=== PATIENT | male | born 1970 | race Caucasian/White ===

== ENCOUNTER 2025-03-29 12:35 | Emergency (ER) | payer OTHER, SELFPAY ==
--- OUTSIDE RECORDS SUMMARY | 2025-01-06 04:00 | XMS_ITS ---
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 Name Role Phone ROXANA LANDIN Primary Care Provider Timoteo Matthew Unavailable [phone] REASON FOR VISIT RIGHT ANKLE INJURY FILMS AT [facility] Encounters Encounter Location Date Provider Diagnosis [facility] [address] [place] [address] 01/06/2025 Timoteo Zuniga Plan Of Treatment No Information Progress Notes * ILIR MONTILLAINDOB:1970 (54 yo M)Acc No.[id number]:01/06/2025 Patient: Sulaiman IVORY JANA Provider: Tyrese Zuniga MD :1970 A ge:54 Y S ex:Male Date:01/06/2025 Address:[address] [place], [place] [phone] Pcp:ROXANA LANDIN Subjective: * Chief Complaints: * 1 . RIGHT ANKLE INJURY FILMS AT [facility]. * Medical History: Objective: * Vitals: Assessment: Plan: * Treatment: Forms: * Images: * Electronic signature of Vikas Zuniga MD on 03/29/2025 at 12:48 PM EDT Sign off status: Pending * Provider: Tyrese Zuniga MD Date: 01/06/2025 Generated for Printi ng/Faxing/eTransmitting on: 0 03/29/2025 12:48 PM EDT
--- OUTSIDE RECORDS SUMMARY | 2025-03-28 14:15 | XMS_ITS | Encounter Summary ---
Author Organization [facility] Address [address] [place] [address] Phone Care Team Providers Care Rotor Plate Washer Name Role Phone Unavailable Primary Care Provider Unavailabl e Reason for Referral * Consultation (Routine) - Authorized Specialty Diagnoses / Procedures Referred By West colon Referred To Contact Primary Care Procedures Follow Up In Primary [place] [address] [place] [address] Phone: tel: fax: Referral ID Status Reason Start Date Expiration Date V isits Requested Visits Authorized [id number] Authorized 03/28/2025 03/28/2026 1 1 * Endoscopy (Routine) - Pending Review Specialty Diagnoses / Procedures Referred By West colon Referred To Contact Gastroenterology Diagnoses Iron deficiency anemia due to chronic blood loss Procedures Colonoscopy Screening; Average Risk Patient AL COLONOSCOPY FLX DX W/COLLJ SPEC WHEN PFRMD AL COLORECTAL CANCER SCREENING; COLONOSCOPY ON INDIVIDUAL NOT MEETING CRITERIA FOR HIGH RISK AL COLORECTAL CANCER SCREENING; COLONOSCOPY ON INDIVIDUAL AT HIGH RISK AL COLONOSCOPY W/BIOPSY SINGLE/MULTIPLE AL COLSC FLX W/RMVL OF TUMOR POLYP LESION SNARE TQ AL COLSC FLX W/REMOVAL LESION [place] [address] [place] [address] Phone: tel: fax: Referral ID Status Reason Start Date Expiration Date V isits Requested Visits Authorized [id number] Pending Review 03/28/2025 03/28/2026 1 1 * CV Imaging (Routine) - Pending Review Specialty Diagnoses / Procedures Referred By Contac t Referred To Contact Cardiology Diagnoses Dissecting aneurysm of thoracic aorta, Jona type B (Multi) Hypertension, unspecified type Procedures Echocardiogram Stress Test AL ECHO TTHRC R-T 2D W/WO M-MODE COM[place]TE REST&[place] [address] [address] [phone] Phone: tel: fax: Referral ID Status Reason Start Date Expiration Date Visits Requested Visits Authorized [id number] Pending Review Perform Procedure 03/28/2025 03/28/2026 1 1 Reason for Visit * Reason Comments Establish Care Medication refills a nd fatigue Encounter Details Date Type Department Care Team (Late st Contact Info) Description 03/28/2025 2:15 PM EDT Office Visit [facility] [address] [facility] [address] [place] [address] [place] [address] [address] [phone] Leg swelling (Primary Dx); Dissecting aneurysm of thoracic aorta, Johnston type B (Multi); Fatigue, unspecified type; Iron deficiency anemia due to chronic blood loss; Hypertension, unspecified type Social History Tobacco Use Types Packs/Day Years Used Date Smoking Tobacco: Former Cigarettes 1 35.4 S tarted: 1989 Smokeless Tobacco: Former Alcohol Use Standard Drinks/Week Comments Yes 1 (1 standard drink = 0.6 oz pur e alcohol) [facility] Utilities Answer Date Recorded In the past 12 months has [employer] gas, oil, or water company threatened to shut off services in your home? No 01/23/2025 Humiliation, Afraid, Rape, and Kick questionnair e Answer Date Recorded Within the last year, have y ou been afraid of your partner or ex-partner? No 01/23/2025 Within the last year, have y ou been humiliated or emotionally abused in other ways by your partner or ex-partner? No Within the last year, have y ou been kicked, hit, slapped, or otherwise physically hurt by your partner or ex-partner? No 01/23/2025 Within the last year, have y ou been raped or forced to have any kind of sexual activity by your partner or ex-partner? No 01/23/2025 AUDIT-C Answer Date Recorded Q1: How often do you have a drink containing alcohol? 4 or more times a week 01/23/2025 Q2: How many drinks containi ng alcohol do you have on a typical day when you are drinking? 3 or 4 Q3: How often do you have si x or more drinks on one occasion? Never 01/23/2025 Overall Financial Resource Strain (CARDIA) Answe r Date Recorded How hard is it for you to pa y for the very basics like food, housing, medical care, and heating? Not very hard 01/23/2025 PHQ-2 Answer Date Recorded Patient Health Questionnaire-2 Score 0 03/28/2025 Hunger Vital Sign Answer Date Recorded Within the past 12 months, y ou worried that your food would run out before you got the money to buy more. Never true 01/24/20 25 Within the past 12 months, t he food you bought just didn't last and you didn't have money to get more. Never true 01/23/2025 PRAPARE - Transportation Answer Date Re corded In the past 12 months, has l ack of transportation kept you from medical appointments or from getting medications? No 04/2025 In the past 12 months, has l ack of transportation kept you from meetings, work, or from getting things needed for daily living? No 01/23/2025 Housing Stability Vital Sign Answer Jonah e Recorded In the last 12 months, was t here a time when you were not able to pay the mortgage or rent on time? No 01/23/2025 In the past 12 months, how m any times have you moved where you were living? 0 01/23/2025 At any time in the past 12 m [facility], were you homeless or living in a snf (including now)? No 01/23/2025 Sex and Gender Information Value Date Recorded Sex Assigned at Not on file Legal Sex Male 10:15 AM EST Gender Identity Not on file Sexual Orientation Not on file COVID-19 Exposure Response Date Recorded In the last 10 days, have yo u been in contact with someone who was confirmed or suspected to have Coronavirus/COVID-19? No / Unsure 03/28/2025 2:20 PM EDT documented as of this encounter Last Filed Vital Signs Vital Sign Reading Time Taken Comments Blood Pressure 120/59 03/28/2025 2:47 PM EDT Pulse 56 03/28/2025 2:47 PM EDT Temperature 36.7 C (98.1 F) 03/28/2025 2:47 PM EDT Respiratory Rate - - Oxygen Saturation 96% 03/28/2025 2:47 PM EDT Inhaled Oxygen Concentration - - Weight 101 kg (223 lb 9.6 oz) 03/28/2025 2:47 PM EDT Height 170.2 cm (5' 7 ) 03/28/2025 2:47 PM EDT Body Mass Index 35.02 03/28/2025 2:47 PM EDT documented in this encounter Functional Status * Over the past 2 weeks, how often have you been bothered by any of the following problems? Question Answer Date of Assessment Author Little interest or pleasure in doing things Not at all 03/28/2025 2:47 PM EDT Jemma Carson M A Feeling down, depressed, or hopeless Not at all 03/28/2025 2:47 PM EDT Jemma Carson M A Patient Health Questionnaire -2 Score 0 03/28/2025 2:47 PM EDT Jemma Carson M A documented as of this encounter Progress Notes * Roney Chen MD - 03/28/2025 2:15 PM EDT Chief complaint: establish care HPI: Roneytrisha Rebollar is a 54 y.o. male with pmh Type B Aortic Dissection, HTN, anemia of chronic disease, polysubstance use [facility] Patient had recent hospitalization for Type B Aortic Dissection where he was admitted to CICU for impulse control. No intervention was done during the admission. Hospital course was complicated by pulmonary edema. TTE showed normal EF. RHC showed elevated filling pressures. He required IV lasix andwas discharged on new HTN medications, ASA, and atorvastatin. Prior to this admission, he did follow with any doctors and was not on any medications. He sees cardiac surgery with repeat imaging on April 07. Today, he is complaining of occasional bright red blood per rectum 2-3x per week. He feels like hisstool is burning and notices streaks of blood on his toilet paper. He was started on PO iron on discharge. Endorsing dyspnea on exertion most noticeable after climbing one flight of stairs. Also with lower extremity swelling. Denies orthopnea/PND. He has been taking daily blood pressure readings at home. Home BP readings: gets low as 80/41, highest readings are 140s/70s; average 110-120s/60s. HR is typically in 50s. He feels like he is often fatigued and getting light-headed after standing up. Medications: Current Outpatient Medications Medication Instructions amLODIPine (NORVASC) 5 mg, oral, Daily aspirin 81 mg, oral, Daily atorvastatin (LIPITOR) 40 mg, oral, Nightly Banophen 25 mg, oral, Every 8 hours PRN carvedilol (COREG) 25 mg, oral, 2 times daily FeroSuL 325 mg, oral, Daily with breakfast isosorbide mononitrate ER (IMDUR) 120 mg, oral, Daily, Do not crush or chew. losartan-hydrochlorothiazide (Hyzaar) 100-25 mg tablet 1 tablet, oral, Daily Allergies: RX Allergies[1] Past medical history: Medical History[2] Surgical history: Surgical History[3] Family history: Family History[4] Social history: reports that he has quit smoking. His smoking use included cigarettes. He started smoking about 35 years ago. He has a 35.4 pack-year smoking history. He has quit using smokeless tobacco. He reports current alcohol use of about 1.0 standard drink of alcohol per week. He reports that he does not usedrugs. Health maintenance: Health Maintenance Topic Date Due Yearly Adult Physical Never done Colorectal Cancer Screening Never done MMR Vaccines (1 of 1 - Standard series) Never done Hepatitis C Screening Never done Hepatitis B Vaccines (1 of 3 - 19+ 3-dose series) Never done Pneumococcal Vaccine (1 of 2 - PCV) Never done Zoster Vaccines (1 of 2) Never done DTaP/Tdap/Td Vaccines (2 - Td or Tdap) 04/11/2024 COVID-19 Vaccine (1 - season) Never done Influenza Vaccine (Season Ended) 2025 Diabetes: Hemoglobin A1C 01/23/2026 Diabetes Screening 01/23/2026 Echocardiogram 01/24/2026 Creatinine Level 02/04/2026 Potassium Level 02/04/2026 Lipid Panel 01/23/2030 HIV Screening Completed HIB Vaccines Aged Out IPV Vaccines Aged Out Hepatitis A Vaccines Aged Out Meningococcal Vaccine Aged Out Rotavirus Vaccines Aged Out HPV Vaccines Aged Out Sexual History Currently Sexually Active: No STI Concern/Hx: No History Review of systems: Negative Except Above Vitals: Vitals: 03/28/25 1447 BP: 120/59 Pulse: 56 Temp: 36.7 ??C (98.1 ??F) SpO2: 96% Physical exam: Physical Exam Constitutional: General: He is not in acute distress. Appearance: Normal appearance. He is normal weight. Eyes: General: No scleral icterus. Cardiovascular: Rate and Rhythm: Normal rate and regular rhythm. Pulmonary: Effort: No respiratory distress. Breath sounds: No wheezing or rhonchi. Abdominal: General: There is no distension. Palpations: Abdomen is soft. Tenderness: There is no abdominal tenderness. Musculoskeletal: General: Swelling (2+ LE edema) present. Skin: General: Skin is warm. Findings: No bruising or rash. Labs: Lab Results Component Value Date WBC 6.7 02/04/2025 HGB 10.8 (L) 02/04/2025 HCT 33.5 (L) 02/04/2025 MCV 92 02/04/2025 PLT 252 02/04/2025 Lab Results Component Value Date GLUCOSE 100 (H) 02/04/2025 CALCIUM 8.1 (L) 02/04/2025 NA 137 02/04/2025 K 3.5 02/04/2025 CO2 24 02/04/2025 CL 103 02/04/2025 BUN 13 02/04/2025 CREATININE 1.10 02/04/2025 Lab Results Component Value Date HGBA1C 5.8 (H) 01/23/2025 Lab Results Component Value Date CHOL 196 01/23/2025 Lab Results Component Value Date HDL 56.5 01/23/2025 Lab Results Component Value Date LDLCALC 123 (H) 01/23/2025 Lab Results Component Value Date TRIG 83 01/23/2025 No components found for: CHOLHDL Imaging: Imaging No results found. Cardiology, Vascular, and Other Imaging No other imaging results found for the past 7 days Assessment and plan: Roney Rebollar is a 54 y.o. male with pmh Type B Aortic Dissection, HTN, anemia of chronic disease, polysubstance use [facility] He had recent hospitalization for Type B dissection. Blood pressure has previously been >200 SBP. Now well controlled on 4 medications. Due to symptoms of fatigue/LE edema, will decrease amlodipine to 5 mg and coreg to 25 BID. Adding hydrochlorothiazide 25 mg to keep BP controlled. ARIAS is likely multifactorial from underlying HFpEF, anemia, and CHRISTINE. Will evaluate for CAD with stress test. Evaluating for etiology of anemia with repeat iron studies and colonoscopy. #Type B Aortic Dissection #HTN ::BP 120/59 today -Continue aspirin 81 -Continue Imdur 120 ER -Decrease coreg 25 mg BID -Decrease amlodipine 5 mg -Change losartan to losartan-hydrochlorothiazide 100/25 -Consider adding ajit vs SGLT2 next visit -Following up with Cardiac surgery and repeat imaging 04/07 #ARIAS, multifactorial ::Likely component of CHRISTINE vs anemia vs CAD vs HFpEF -Stress test ordered -Colonoscopy ordered -Repeat iron studies and CBC today #Anemia #Likely anemia of chronic disease ::Hgb 10 during admission, ferritin >500 -Colonoscopy ordered -Update iron studies, plan to stop PO iron if ferritin still >100 #Prediabetes ::A1c 5.8 -CTM #HLD -Atorvastatin 40 -Repeat lipid panel today HEALTH MAINTENANCE Antibody Testing HIV: denied Syphilis: denied Hepatitis C: denied Vaccines Influenza: Recommend in fall Shingles: denied Tdap: states he received this at outside urgent care Pneumonia: denied COVID: Recommend at pharmacy Cancer screening Colonoscopy: ordered Low dose Chest CT: not indicated Plan Follow-up in 6 weeks. Patient and plan discussed with attending physician Dr. Jerry Chen, MD PGY-2 [1] Allergies Allergen Reactions Spironolactone Hives and Itching [2] Past Medical History: Diagnosis Date HTN (hypertension) Johnston type B dissection of aorta [3] Past Surgical History: Procedure Laterality Date CARDIAC CATHETERIZATION N/A 02/01/2025 Procedure: Burley Insertion; Surgeon: Partha Gore MD; Location: [place] [address] [facility]; Service: Cardiovascular; Laterality: N/A; CARDIAC CATHETERIZATION N/A 02/01/2025 Procedure: Right Heart Cath; Surgeon: Partha Gore MD; Location: [place] [address] [facility]; Service: Cardiovascular; Laterality: N/A; [4] Family History Problem Relation Name Age of Onset Cancer Father 80 - 89 documented in this encounter Plan of Treatment Upcoming Encounters Date Type Department Care Team (Late st Contact Info) Description 04/07/2025 10:00 AM EDT Office Visit [facility] [place] [address] [address] [place] [address] [address] Department [place] [address] 04/13/2025 8:00 AM EDT Appointment [facility] [address] [phone] Scheduled Orders Name Type Priority Associated Diagnoses Order Schedule Echocardiogram Stress Test Stress Echocardiography Routine Dissecting aneurysm of thoracic aorta, Johnston type B (Multi) Hypertension, unspecified type Expected: 03/28/2025 (Approximate), Expires: 03/28/2026 Lipid panel Lab Routine Dissecting aneurysm of thoracic aorta, Jona type B (Multi) Expected: 03/28/2025 (Approximate), Expires: 03/28/2026 CBC Lab Routine Dissecting aneurysm of thoracic aorta, Johnston type B (Multi) Expected: 03/28/2025 (Approximate), Expires: 03/28/2026 Ferritin Lab Routine Iron deficiency anemia due to chronic blood loss Expected: 03/28/2025 (Approximate), Expires: 03/28/2026 Colonoscopy Screening; Average Risk Patient Endoscopy Routine Iron deficiency anemia due to chronic blood loss Expected: 03/28/2025, Expires: 03/28/2026 Iron and TIBC Lab Routine Iron deficiency anemia due to chronic blood loss Expected: 03/28/2025 (Approximate), Expires: 03/28/2026 documented as of this encounter Visit Diagnoses Diagnosis Leg swelling- Primary Swelling of limb Dissecting aneurysm of thoracic aorta, Jona type B (Multi) Fatigue, unspecified type Iron deficiency anemia due to chronic blood loss Iron deficiency anemia secondary to blood loss (chronic) Hypertension, unspecified type documented in this encounter Additional Health Concerns Assessment Noted Time A fall risk assessment has been complete d for the patient 03/28/2025 2:47 PM EDT documented as of this encounter
[2025-03-29] VITALS (9 sets, daily range): BP systolic 108–129; BP diastolic 66–78; PULSE 49–60; TEMP 36.7; O2SAT 86–97; BMI 34.6
--- OUTSIDE RECORDS SUMMARY | 2025-03-29 12:48 | XMS_ITS | Clinical Summary ---
Author Organization [facility] Address [address] [place] [address] Care Team Providers Care Enterprise Records Analyst Name Role Phone No, Physician Primary Care Provider Unavailabl e Allergies No known active allergies Medications ibuprofen (ADVIL,MOTRIN) 200 MG tablet Take 200 mg by mouth every 6 (six) hours as needed for pain . Active guaiFENesin (MUCINEX) 600 mg 12 hr tablet Take 600 mg by mouth every 12 (twelve) hours . Active Active Problems No known active problems Social History Tobacco Use Types Packs/Day Years Used Date Smoking Tobacco: Never Smokeless Tobacco: Never Alcohol Use Standard Drinks/Week Comments Yes 0 (1 standard drink = 0.6 oz pur e alcohol) AUDIT-C Answer Date Recorded Frequency of Alcohol Consumption Not on file 09/22/2020 Average Number of Drinks Not on file 020 Q3: How often do you have si x or more drinks on one occasion? Weekly 09/22/2020 Sex and Gender Information Value Date Recorded Sex Assigned at Not on file Legal Sex Male 1:46 PM EDT Gender Identity Male 09/18/2020 9:58 AM EST Sexual Orientation Straight 09/18/2020 9: 58 AM EST Last Filed Vital Signs Vital Sign Reading Time Taken Comments Blood Pressure 187/121 09/22/2020 6:26 PM EST Pulse 81 09/22/2020 6:26 PM EST Temperature 37.8 C (100.1 F) 09/22/2020 6:26 PM EST Respiratory Rate 16 09/22/2020 6:26 PM EST Oxygen Saturation 95% 09/22/2020 6:26 PM EST Inhaled Oxygen Concentration - - Weight 95.3 kg (210 lb) 09/22/2020 6:26 PM EST Height 170.2 cm (5' 7 ) 09/22/2020 6:26 PM EST Body Mass Index 32.89 09/22/2020 6:26 PM EST Plan of Treatment Health Maintenance Due Date Last Done Comments CT Colonography 1970 Colonoscopy 1969 Colorectal Cancer Screening/Monitoring 1970 Fecal DNA 1969 Fecal occult blood test (FOBT,FIT) 1970 PSA Level 1970 Wellness Visit 1972 Depression Screening/Follow-Up (PHQ-2/9) 1981 HIV Screening 1984 Hepatitis C Screening 1987 Pneumococcal Vaccine: Age 50+ (1 of 1 - PCV) 9 Zoster Vaccines (1 of 2) 2019 Tetanus: Every 10yrs 04/11/2024 04/11/2014 COVID-19 Vaccine ( season) 2024 Influenza Vaccine (Season Ended) 2025 Care Teams Enterprise Records Analyst Relationship Specialty Start Date End Date No, Physician [facility] PCP - General 09/18/20
--- OUTSIDE RECORDS SUMMARY | 2025-03-29 12:48 | XMS_ITS | Patient Health Record ---
Author Organization [facility] Address [address] [place] [address] Care Team Providers Care Viticulture Teacher Name Role Phone ROXANA LANDIN Primary Care Provider Timoteo Matthew Unavailable [phone] Reason For Referral No Information Plan Of Treatment No Information
--- OUTSIDE RECORDS SUMMARY | 2025-03-29 12:48 | XMS_ITS | Clinical Summary ---
Author Organization [facility] 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 Rocket Assembly Operator Name Role Phone Sujata Newberry MD Primary Care Provider [phone]- [phone] Allergies No known active allergies Medications No known medications Encounters Date Type Department Care Team Description 01/04/2025 10:16 AM EDT - 01/04/2025 12:41 PM EDT Emergency [facility] Emergency Department [address] [place] [address] Lisa Wooten MD Sprain of right ankle, unspecified ligament, initial encounter (Primary Dx); Closed avulsion fracture of right ankle, initial encounter Discharge Disposition: Home or Self Care 01/04/2025 Travel from Last 3 Months Immunizations Immunization Administration Dates Next Due TDaP, ADACEL (age 10y-64y), BOOSTRIX (age 10y+), IM, 0.5mL 04/11/2014 Social History Tobacco Use Types Packs/Day Years Used Date Smoking Tobacco: Former Alcohol Use Standard Drinks/Week Comments Yes 20 (1 standard drink = 0.6 oz pu re alcohol) AUDIT-C Answer Date Recorded Q1: How often do you have a drink containing alcohol? Never 01/04/2025 Q2: How many drinks containi ng alcohol do you have on a typical day when you are drinking? Patient does not drink Q3: How often do you have si x or more drinks on one occasion? Never 01/04/2025 Sex and Gender Information Value Date Recorded Sex Assigned at Not on file Legal Sex Male 2:17 PM EST Gender Identity Not on file Sexual Orientation Not on file Last Filed Vital Signs Vital Sign Reading Time Taken Comments Blood Pressure 190/144 01/04/2025 10:20 AM EDT Pulse 78 01/04/2025 10:17 AM EDT Temperature 37 C (98.6 F) 01/04/2025 10:17 AM EDT Respiratory Rate 20 01/04/2025 10:17 AM EDT Oxygen Saturation 94% 01/04/2025 10:17 AM EDT Inhaled Oxygen Concentration - - Weight 81.6 kg (180 lb) 10/15/2015 2:26 PM EST Height 172.7 cm (5' 8 ) 04/11/2014 9:14 PM EDT Body Mass Index 27.37 04/11/2014 9:14 PM EDT Plan of Treatment Health Maintenance Due Date Last Done Comments Depression Screen 1981 HIV screen 1984 Hepatitis C screen 1987 Hepatitis B vaccine (1 of 3 - 19+ 3-dose series) 1988 Lipids 2009 Colonoscopy 2014 Colorectal Cancer Screen 2014 FIT/FOBT: Average risk 2014 Fecal-DNA (Cologuard): [place] ge risk 2014 Sigmoidoscopy/CT colonography 2014 Pneumococcal 50+ years Vacci ne (1 of 1 - PCV) 2019 Shingles vaccine (1 of 2) 2019 DTaP/Tdap/Td vaccine (2 - Td or Tdap) 04/11/2024 04/11/2014 COVID-19 Vaccine (1 - 2023-2 5 season) 2024 Flu vaccine (Season Ended) 2025 Hepatitis A vaccine Aged Out No longe r eligible based on patient's age to complete this topic Hib vaccine Aged Out No longer eligi ble based on patient's age to complete this topic Meningococcal (ACWY) vaccine Aged Out No longer eligible based on patient's age to complete this topic Meningococcal B vaccine Aged Out No l onger eligible based on patient's age to complete this topic Polio vaccine Aged Out No longer elig ible based on patient's age to complete this topic Procedures Procedure Name Priority Date/Time Associated Diagnosis Comments XR ANKLE RIGHT (MIN 3 VIEWS) STAT 01/04/2025 11:03 AM EDT XR FOOT RIGHT (MIN 3 VIEWS) STAT 01/04/2025 11:03 AM EDT from Last 3 Months Results * XR ANKLE RIGHT (MIN 3 VIEWS) (01/04/2025 11:03 AM EDT) Anatomical Region Laterality Modality Leg, Ankle, Foot Computed Radiog [place]ia 01/04/2025 11:0 3 AM EDT Impressions 01/04/2025 11:28 AM EDT FINDINGS/IMPRESSION: 1. Questionable 3 mm avulsion fragment from the anterior aspect of the distal tibia seen only in the lateral view. 2. Mild diffuse soft tissue swelling. 3. Minimal degenerative change first MTP joint. 4. Otherwise negative (skin markers placed over the areas of concern pointed out by the patient). Narrative 01/04/2025 11:28 AM EDT EXAM: XR FOOT RIGHT (MIN 3 VIEWS), XR ANKLE RIGHT (MIN 3 VIEWS) HISTORY: heater fell on foot COMPARISON: None. Procedure Note Mian Oleary Jr., MD - 01/04/2025 EXAM: XR FOOT RIGHT (MIN 3 VIEWS), XR ANKLE RIGHT (MIN 3 VIEWS) HISTORY: heater fell on foot COMPARISON: None. IMPRESSION: FINDINGS/IMPRESSION: 1. Questionable 3 mm avulsion fragment from the anterior aspect of thedistal tibia seen only in the lateral view. 2. Mild diffuse soft tissue swelling. 3. Minimal degenerative change first MTP joint. 4. Otherwise negative (skin markers placed over the areas of concernpointed out by the patient). [facility] ORDER POONAM Final Result * XR FOOT RIGHT (MIN 3 VIEWS) (01/04/2025 11:03 AM EDT) Anatomical Region Laterality Modality Foot, Ankle Computed Radiogr aphy 01/04/2025 11:0 3 AM EDT Impressions 01/04/2025 11:28 AM EDT FINDINGS/IMPRESSION: 1. Questionable 3 mm avulsion fragment from the anterior aspect of the distal tibia seen only in the lateral view. 2. Mild diffuse soft tissue swelling. 3. Minimal degenerative change first MTP joint. 4. Otherwise negative (skin markers placed over the areas of concern pointed out by the patient). Narrative 01/04/2025 11:28 AM EDT EXAM: XR FOOT RIGHT (MIN 3 VIEWS), XR ANKLE RIGHT (MIN 3 VIEWS) HISTORY: heater fell on foot COMPARISON: None. Procedure Note Mian Oleary Jr., MD - 01/04/2025 EXAM: XR FOOT RIGHT (MIN 3 VIEWS), XR ANKLE RIGHT (MIN 3 VIEWS) HISTORY: heater fell on foot COMPARISON: None. IMPRESSION: FINDINGS/IMPRESSION: 1. Questionable 3 mm avulsion fragment from the anterior aspect of thedistal tibia seen only in the lateral view. 2. Mild diffuse soft tissue swelling. 3. Minimal degenerative change first MTP joint. 4. Otherwise negative (skin markers placed over the areas of concernpointed out by the patient). us Lisa Wooten MD [facility] ORDER POONAM Final Result from Last 3 Months Care Teams Rocket Assembly Operator Relationship Specialty Start Date End Date Sujata Newberry MD [address] [address] PCP - General 04/11/14
--- OUTSIDE RECORDS SUMMARY | 2025-03-29 12:49 | XMS_ITS | Clinical Summary ---
Author Organization [facility] Address [address] [place] [address] Phone Care Team Providers [employer] Name Role Phone Unavailable Primary Care Provider Unavailabl e Allergies Active Allergy Reactions Criticality Noted Date Comments Spironolactone Hives,Itching 02/01/2025 Medications aspirin 81 mg chewable tabletIndicatio ns:Dissecting aneurysm of thoracic aorta, Jona type B (Multi) Chew 1 tablet (81 mg) once daily. 30 tablet 1 5 11:48 AM EDT 02/06/20 25 025 Active atorvastatin (Lipitor) 40 mg tabletIndicatio ns:Dissecting aneurysm of thoracic aorta, Jona type B (Multi) Take 1 tablet (40 mg) by mouth once daily at bedtime. 30 tablet 1 5 11:48 AM EDT 02/05/20 25 025 Active diphenhydrAMINE (BENADryl) 25 mg capsuleIndicati ons:Urticaria Take 1 capsule (25 mg) by mouth every 8 hours if needed for itching for up to 8 doses. 8 capsule 5 11:48 AM EDT 02/05/20 25 Active ferrous sulfate 325 mg (65 mg elemental) tabletIndicatio ns:Iron deficiency anemia, unspecified iron deficiency anemia type Take 1 tablet (325 mg) by mouth once daily with breakfast. 30 tablet 1 5 11:48 AM EDT 02/06/20 25 025 Active isosorbide mononitrate ER (Imdur) 120 mg 24 hr tabletIndicatio ns:Dissecting aneurysm of thoracic aorta, Jona type B (Multi) Take 1 tablet (120 mg) by mouth once daily. Do not crush or chew. 30 tablet 1 5 11:48 AM EDT 02/06/20 25 025 Active losartan-hydroc hlorothiazide (Hyzaar) 100-25 mg tabletIndicatio ns:Hypertension , unspecified type Take 1 tablet by mouth once daily. 30 tablet 11 03/28/20 25 026 Active carvedilol (Coreg) 12.5 mg tabletIndicatio ns:Dissecting aneurysm of thoracic aorta, Troy type B (Multi) Take 2 tablets (25 mg) by mouth 2 times a day. 120 tablet 1 03/28/20 25 025 Active amLODIPine (Norvasc) 10 mg tabletIndicatio ns:Dissecting aneurysm of thoracic aorta, Jona type B (Multi) Take 0.5 tablets (5 mg) by mouth once daily. 15 tablet 1 03/28/20 025 Active amLODIPine (Norvasc) 10 mg tabletIndicatio ns:Dissecting aneurysm of thoracic aorta, Jona type B (Multi) Take 1 tablet (10 mg) by mouth once daily. 30 tablet 1 5 11:48 AM EDT 02/06/20 025 Discontinued carvedilol (Coreg) 12.5 mg tabletIndicatio ns:Dissecting aneurysm of thoracic aorta, Jona type B (Multi) Take 3 tablets (37.5 mg) by mouth 2 times a day. 180 tablet 1 5 11:48 AM EDT 02/05/20 025 Discontinued losartan (Cozaar) 100 mg tabletIndicatio ns:Dissecting aneurysm of thoracic aorta, Troy type B (Multi) Take 1 tablet (100 mg) by mouth once daily. 30 tablet 1 5 11:48 AM EDT 02/06/20 25 025 Discontinued( erapy completed) thiamine (Vitamin B-1) 100 mg tabletIndicatio ns:Alcohol use Take 1 tablet (100 mg) by mouth once daily. 30 tablet 1 11:48 AM EDT 02/06/20 025 Discontinued(Me d List Cleanup) amLODIPine (Norvasc) 10 mg tabletIndicatio ns:Dissecting aneurysm of thoracic aorta, Jona type B (Multi) Take 0.5 tablets (5 mg) by mouth once daily. 15 tablet 1 03/28/20 25 025 Discontinued Active Problems Problem Noted Date Diagnosed Date Cardiogenic pulmonary edema 02/01/2025 Bilateral atelectasis 02/01/2025 Dissecting aneurysm of thora cic aorta, Troy type B (Multi) 01/22/2025 Leg swelling 01/22/2025 Acute respiratory failure with hypoxemia 025 Encounters Date Type Department Care Team Description 03/28/2025 2:15 PM EDT Office Visit [facility] [address] [facility] [address] [place] [phone] Roney Chen MD Leg swelling (Primary Dx); Dissecting aneurysm of thoracic aorta, Jona type B (Multi); Fatigue, unspecified type; Iron deficiency anemia due to chronic blood loss; Hypertension, unspecified type 03/28/2025 Travel 03/03/2025 Orders Only [facility] [address] [place] [address] Pallavi Jones, [employer]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 Dissection of thoracic aorta, unspecified (Multi) 02/01/2025 1:05 PM EDT - 02/01/2025 2:05 PM EDT Surgery [facility] [address] [place] [address] [place] [phone] Partha Gore MD Swan Insertion [[id number] (CPT )] 01/23/2025 Travel 01/22/2025 8:50 PM EDT - 02/04/2025 5:42 PM EDT Hospital Encounter [facility] [address] [place] [phone] Hasmukh Bustos MD Sundaram, Varun, MD Castro Dominguez, Yulanka S, MD Dissecting aneurysm of thoracic aorta, Troy type B (Multi) (Primary Dx); Leg swelling; Localized edema; Hypoxia; Dissection of thoracic aorta, unspecified (Multi); Respiratory failure, unspecified with hypoxia; Iron deficiency anemia, unspecified iron deficiency anemia type; Alcohol use; Urticaria Discharge Disposition: Home 01/22/2025 Documentation [facility] [place] [address] [place] [address] Javi Gar MD from Last 3 Months Immunizations Immunization Administration Dates Next Due Tdap vaccine, age 7 year and older (BOOSTRIX, AD ACEL) 04/11/2014 Family History Medical History Relation Name Comments Cancer Father Relation Name Status Comments Father Social History Tobacco Use Types Packs/Day Years Used Date Smoking Tobacco: Former Cigarettes 1 35.4 S tarted: 1989 Smokeless Tobacco: Former Alcohol Use Standard Drinks/Week Comments Yes 1 (1 standard drink = 0.6 oz pur e alcohol) [facility] Utilities Answer Date Recorded In the past 12 months has [employer], gas, oil, or water [employer] threatened to shut off services in your [...] any time in the past 12 m [facility], were you homeless or living in a usp (including now)? No 01/23/2025 Sex and Gender [...] No / Unsure 03/28/2025 2:20 PM EDT Last Filed Vital Signs Vital Sign Reading Time Taken Comments Blood Pressure 120/59 03/28/2025 2:47 PM EDT Pulse 56 03/28/2025 2:47 PM EDT Temperature 36.7 C (98.1 F) 03/28/2025 2:47 PM EDT Respiratory Rate 22 02/04/2025 3:58 PM EDT Oxygen Saturation 96% 03/28/2025 2:47 PM EDT Inhaled Oxygen Concentration - - Weight 101 kg (223 lb 9.6 oz) 03/28/2025 2:47 PM EDT Height 170.2 cm (5' 7 ) 03/28/2025 2:47 PM EDT Body Mass Index 35.02 03/28/2025 2:47 PM EDT Plan of Treatment Upcoming Encounters Date Type Department Care Team (Late st Contact Info) Description 04/07/2025 10:00 AM EDT Office Visit [facility] [address] [place] [address] [place] [phone] Department [place] [address] 04/13/2025 8:00 AM EDT Appointment [facility] [address] [place] [address] Health Maintenance Due Date Last Done Comments CT Colonography 1969 Colonoscopy 1969 Colorectal Cancer Screening 1969 FIT-DNA (Cologuard) 1969 FIT 1969 Sigmoidoscopy 1969 Yearly Adult Physical 1969 MMR Vaccines (1 of 1 - Standard series) 1970 Hepatitis C Screening 1987 Hepatitis B Vaccines (1 of 3 - 19+ 3-dose series) 1988 Pneumococcal Vaccine (1 of 2 - PCV) 1988 Zoster Vaccines (1 of 2) 2019 DTaP/Tdap/Td Vaccines (2 - Td or Tdap) 04/11/2024 04/11/2014 COVID-19 Vaccine (1 - season) 2024 Influenza Vaccine (Season Ended) 2025 Diabetes Screening 01/23/2026 01/23/2025, 01/23/2025 Diabetes: Hemoglobin A1C 01/23/2026 01/23/2025 Echocardiogram 01/24/2026 01/24/2025, 04/0 04/2025, 01/23/2025 Creatinine Level 02/04/2026 02/04/2025, , 02/02/2025, Additional history exists Potassium Level 02/04/2026 02/04/2025, 01/17, 02/02/2025, Additional history exists Lipid Panel 01/23/2030 01/23/2025 HIV Screening Completed 01/26/2025 HIB Vaccines Aged Out No longer eligi ble based on patient's age to complete this topic HPV Vaccines Aged Out No longer eligi ble based on patient's age to complete this topic Hepatitis A Vaccines Aged Out No long er eligible based on patient's age to complete this topic IPV Vaccines Aged Out No longer eligi ble based on patient's age to complete this topic Meningococcal Vaccine Aged Out No bridgett domo eligible based on patient's age to complete this topic Rotavirus Vaccines Aged Out No longer eligible based on patient's age to complete this topic Procedures Procedure Name Priority Date/Time Associated Diagnosis Comments LACTATE Pending Discharge 02/04/2025 8:00 AM EDT RENAL FUNCTION PANEL Pending Discharge 02/04/2025 8:00 AM EDT MAGNESIUM Pending Discharge 02/04/2025 8:00 AM EDT CBC WITH AUTO DIFFERENTIAL Pending Discharge 02/04/2025 8:00 AM EDT LACTATE Routine 02/03/2025 4:14 AM EDT RENAL FUNCTION PANEL Routine 02/03/2025 4:14 AM EDT MAGNESIUM Routine 02/03/2025 4:14 AM EDT CBC WITH AUTO DIFFERENTIAL Routine 02/03/2025 4:14 AM EDT MAGNESIUM Routine 02/02/2025 6:54 PM EDT RENAL FUNCTION PANEL Routine 02/02/2025 6:54 PM EDT LACTATE Routine 02/02/2025 4:18 AM EDT RENAL FUNCTION PANEL Routine 02/02/2025 4:18 AM EDT MAGNESIUM Routine 02/02/2025 4:18 AM EDT CBC WITH AUTO DIFFERENTIAL Routine 02/02/2025 4:18 AM EDT RHC Routine 02/01/2025 2:00 PM EDT Dissecting aneurysm of thoracic aorta, Troy type B (Multi) Leg swelling Hypoxia Respiratory failure, unspecified with hypoxia SWAN INSERTION Routine 02/01/2025 2:00 PM EDT Dissecting aneurysm of thoracic aorta, Jona type B (Multi) Leg swelling Hypoxia Respiratory failure, unspecified with hypoxia BLOOD GAS ARTERIAL FULL PANEL Routine 02/01/2025 10:15 AM EDT SARS-COV-2 AND INFLUENZA A/B PCR Routine 02/01/2025 8:40 AM EDT BLOOD GAS VENOUS FULL PANEL Routine 02/01/2025 3:35 AM EDT RENAL FUNCTION PANEL Routine 02/01/2025 3:33 AM EDT MAGNESIUM Routine 02/01/2025 3:33 AM EDT LACTATE Routine 02/01/2025 3:32 AM EDT CBC WITH AUTO DIFFERENTIAL Routine 02/01/2025 3:32 AM EDT XR CHEST 1 VIEW STAT 01/31/2025 8:[address] ANGIO CHEST ABDOMEN PELVIS STAT 01/31/2025 5:56 PM EDT BLOOD GAS ARTERIAL FULL PANEL Routine 01/31/2025 12:39 PM EDT B-TYPE NATRIURETIC PEPTIDE Add-On 01/31/2025 5:02 AM EDT LACTATE Pending Discharge 01/31/2025 5:02 AM EDT RENAL FUNCTION PANEL Pending Discharge 01/31/2025 5:02 AM EDT MAGNESIUM Pending Discharge 01/31/2025 5:02 AM EDT CBC WITH AUTO DIFFERENTIAL Pending Discharge 01/31/2025 5:02 AM EDT LACTATE Pending Discharge 01/30/2025 5:12 AM EDT RENAL FUNCTION PANEL Pending Discharge 01/30/2025 5:12 AM EDT MAGNESIUM Pending Discharge 01/30/2025 5:12 AM EDT CBC WITH AUTO DIFFERENTIAL Pending Discharge 01/30/2025 5:12 AM EDT LACTATE Pending Discharge 01/29/2025 3:05 AM EDT RENAL FUNCTION PANEL Pending Discharge 01/29/2025 3:05 AM EDT MAGNESIUM Pending Discharge 01/29/2025 3:05 AM EDT CBC WITH AUTO DIFFERENTIAL Pending Discharge 01/29/2025 3:05 AM EDT LACTATE Pending Discharge 01/28/2025 5:26 AM EDT RENAL FUNCTION PANEL Pending Discharge 01/28/2025 5:26 AM EDT MAGNESIUM Pending Discharge 01/28/2025 5:26 AM EDT CBC WITH AUTO DIFFERENTIAL Pending Discharge 01/28/2025 5:26 AM EDT BLOOD GAS ARTERIAL FULL PANEL Pending Discharge 01/27/2025 1:39 PM EDT BLOOD GAS ARTERIAL FULL PANEL Pending Discharge 01/27/2025 10:52 AM EDT RETICULOCYTES Add-On 01/27/2025 5:20 AM EDT VANCOMYCIN, TROUGH Routine 01/27/2025 5: 20 AM EDT LACTATE Routine 01/27/2025 5:20 AM EDT RENAL FUNCTION PANEL Routine 01/27/2025 5:20 AM EDT MAGNESIUM Routine 01/27/2025 5:20 AM EDT CBC WITH AUTO DIFFERENTIAL Routine 01/27/2025 5:20 AM EDT RENAL FUNCTION PANEL Routine 01/26/2025 5:[address] CHEST WO IV CONTRAST STAT 01/26/2025 2:39 PM EDT XR CHEST 1 VIEW STAT 01/26/2025 11:50 AM EDT VASC US RENAL ARTERY DUPLEX COMPLETE STAT 01/26/2025 11:45 AM EDT Dissecting aneurysm of thoracic aorta, Jona type B (Multi) Dissection of thoracic aorta, unspecified (Multi) BLOOD GAS ARTERIAL FULL PANEL Routine 01/26/2025 10:58 AM EDT HIV 1/2 ANTIGEN/ANTIBODY SCREEN WIH REFLEX TO CONFIRMATION Add-On 01/26/2025 5:12 AM EDT TRANSFERRIN Add-On 01/26/2025 5:12 AM EDT FERRITIN Add-On 01/26/2025 5:12 AM EDT IRON AND TIBC Add-On 01/26/2025 5:12 AM EDT LACTATE Routine 01/26/2025 5:12 AM EDT RENAL FUNCTION PANEL Routine 01/26/2025 5:12 AM EDT MAGNESIUM Routine 01/26/2025 5:12 AM EDT CBC WITH AUTO DIFFERENTIAL Routine 01/26/2025 5:12 AM EDT VANCOMYCIN Routine 01/25/2025 10:57 PM EDT LEGIONELLA ANTIGEN, URINE Routine 01/25/2025 11:53 AM EDT STREPTOCOCCUS PNEUMONIAE ANTIGEN, URINE Routine 01/25/2025 11:53 AM EDT ECG 12-LEAD Routine 01/25/2025 9:30 AM EDT XR CHEST 1 VIEW Routine 01/25/2025 8:10 AM EDT BLOOD GAS ARTERIAL FULL PANEL Routine 01/25/2025 5:48 AM EDT BLOOD GAS ARTERIAL FULL PANEL Routine 01/25/2025 2:56 AM EDT FOLATE Add-On 01/25/2025 2:55 AM EDT VANCOMYCIN Add-On 01/25/2025 2:55 AM EDT LACTATE Routine 01/25/2025 2:55 AM EDT RENAL FUNCTION PANEL Routine 01/25/2025 2:55 AM EDT MAGNESIUM Routine 01/25/2025 2:55 AM EDT CBC WITH AUTO DIFFERENTIAL Routine 01/25/2025 2:55 AM EDT BLOOD GAS ARTERIAL FULL PANEL Routine 01/24/2025 11:23 PM EDT TROPONIN I, HIGH SENSITIVITY Routine 01/24/2025 11:18 PM EDT BLOOD GAS ARTERIAL FULL PANEL Routine 01/24/2025 7:46 PM EDT BLOOD GAS ARTERIAL FULL PANEL Routine 01/24/2025 7:02 PM EDT TROPONIN I, HIGH SENSITIVITY Routine 01/24/2025 6:58 PM EDT BLOOD GAS ARTERIAL FULL PANEL Routine 01/24/2025 5:31 PM EDT XR CHEST 1 VIEW STAT 01/24/2025 4:34 PM EDT TRANSTHORACIC ECHO (TTE) LIMITED STAT 01/24/2025 4:22 PM EDT Hypoxia BLOOD GAS ARTERIAL FULL PANEL Routine 01/24/2025 4:05 PM EDT BLOOD CULTURE Routine 01/24/2025 3:36 PM EDT BLOOD CULTURE STAT 01/24/2025 3:36 PM EDT SEDIMENTATION RATE, AUTOMATED Add-On 01/24/2025 3:30 PM EDT CBC WITH AUTO DIFFERENTIAL STAT 01/24/2025 3:30 PM EDT BLOOD GAS ARTERIAL FULL PANEL Routine 01/24/2025 3:26 PM EDT RSV PCR Routine 01/24/2025 3:21 PM EDT INFLUENZA A AND B PCR Routine 01/24/2025 3:21 PM EDT SARS-COV-2 PCR Routine 01/24/2025 3:21 PM EDT MRSA SURVEILLANCE FOR VANCOMYCIN DE-ESCALATION, PCR Routine 01/24/2025 3:21 PM EDT B-TYPE NATRIURETIC PEPTIDE Routine 01/24/2025 3:12 PM EDT TROPONIN I, HIGH SENSITIVITY Routine 01/24/2025 3:12 PM EDT COOX PANEL, VENOUS Routine 01/24/2025 3: 12 PM EDT ECG 12-LEAD Routine 01/24/2025 2:19 PM EDT BLOOD GAS ARTERIAL FULL PANEL Routine 01/24/2025 12:45 PM EDT BLOOD GAS ARTERIAL FULL PANEL Routine 01/24/2025 10:15 AM EDT VAS US LOWER EXTREMITY VENOUS DUPLEX BILATERAL STAT 01/24/2025 8:40 AM EDT Leg swelling Localized edema BLOOD GAS ARTERIAL FULL PANEL Routine 01/24/2025 4:52 AM EDT ALDOSTERONE/RENIN ACTIVITY RATIO,PLASMA Routine 01/24/2025 4:50 AM EDT ALDOSTERONE/RENIN ACTIVITY RATIO,SERUM Routine 01/24/2025 4:50 AM EDT ALDOSTERONE/RENIN ACTIVITY RATIO Routine 01/24/2025 4:50 AM EDT C-REACTIVE PROTEIN Add-On 01/24/2025 2: 57 AM EDT LACTATE Routine 01/24/2025 2:57 AM EDT METANEPHRINES PLASMA Routine 01/24/2025 2:57 AM EDT MAGNESIUM Routine 01/24/2025 2:57 AM EDT RENAL FUNCTION PANEL Routine 01/24/2025 2:57 AM EDT CBC WITH AUTO DIFFERENTIAL Routine 01/24/2025 2:[address] ANGIO CHEST ABDOMEN PELVIS STAT 01/23/2025 11:57 PM EDT URINALYSIS WITH REFLEX MICROSCOPIC Routine 01/23/2025 9:29 PM EDT BLOOD GAS ARTERIAL FULL PANEL Routine 01/23/2025 6:23 PM EDT XR CHEST 1 VIEW STAT 01/23/2025 3:57 PM EDT TRANSTHORACIC ECHO (TTE) COMPLETE STAT 01/23/2025 3:29 PM EDT Dissecting aneurysm of thoracic aorta, Jona type B (Multi) BLOOD GAS ARTERIAL FULL PANEL Routine 01/23/2025 2:31 PM EDT LACTATE Routine 01/23/2025 2:01 PM EDT RENAL FUNCTION PANEL Routine 01/23/2025 2:01 PM EDT UREA NITROGEN, URINE RANDOM Add-On 01/23/2025 1:24 PM EDT ELECTROLYTE PANEL, URINE Add-On 01/23/2025 1:24 PM EDT FENTANYL CONFIRMATION, URINE STAT 01/23/2025 1:24 PM EDT OOB INTERNAL TRACKING STAT 01/23/2025 1:24 PM EDT COCAINE, URINE, CONFIRMATION STAT 01/23/2025 1:24 PM EDT AMPHETAMINE CONFIRM, URINE STAT 01/23/2025 1:24 PM EDT DRUG SCREEN, URINE WITH REFLEX TO CONFIRMATION STAT 01/23/2025 1:24 PM EDT ALCOHOL Add-On 01/23/2025 3:28 AM EDT LACTATE Routine 01/23/2025 3:28 AM EDT TYPE AND SCREEN Routine 01/23/2025 3:28 AM EDT HEMOGLOBIN A1C Routine 01/23/2025 3:28 AM EDT LIPID PANEL Routine 01/23/2025 3:28 AM EDT MAGNESIUM Routine 01/23/2025 3:28 AM EDT RENAL FUNCTION PANEL Routine 01/23/2025 3:28 AM EDT CBC WITH AUTO DIFFERENTIAL Routine 01/23/2025 3:28 AM EDT POCT GLUCOSE Routine 01/23/2025 12:26 AM EDT TRANSTHORACIC ECHO (TTE) LIMITED WITH COLOR Routine 01/23/2025 12:03 AM EDT Dissecting aneurysm of thoracic aorta, Jona type B (Multi) DC ARTL CATHJ/CANNULJ MNTR/TRANSFUSION SPX PRQ Routine 01/22/2025 11:13 PM EDT Dissecting aneurysm of thoracic aorta, Troy type B (Multi) BLOOD GAS ARTERIAL FULL PANEL Routine 01/22/2025 10:12 PM EDT LACTATE STAT 01/22/2025 9:05 PM EDT TROPONIN I, HIGH SENSITIVITY Routine 01/22/2025 9:05 PM EDT VERAB/VERIFY ABORH Routine 01/22/2025 9: 05 PM EDT PROTIME-INR Routine 01/22/2025 9:05 PM EDT MAGNESIUM Routine 01/22/2025 9:05 PM EDT COMPREHENSIVE METABOLIC PANEL Routine 01/22/2025 9:05 PM EDT CBC WITH AUTO DIFFERENTIAL STAT 01/22/2025 9:05 PM EDT ECG 12-LEAD Routine 01/22/2025 9:00 PM EDT from Last 3 Months Results * (ABNORMAL) CBC and Auto Differential (02/04/2025 8:00 AM EDT) Only the most recent of15 resultswithin the time period is included. [facility] WBC 6.7 4.4 - 11.3 x10*3/uL LAB HEMATOLOGY METHOD 02/04/2025 9:05 AM EDT [facility] nRBC 0.0 0.0 - 0.0 /100 WBCs LAB HEMATOLOGY METHOD 02/04/2025 9:05 AM EDT [facility] RBC 3.65(L) 4.50 - 5.90 x10*6/uL LAB HEMATOLOGY METHOD 02/04/2025 9:05 AM EDT [facility] Hemoglobin 10.8(L) 13.5 - 17.5 g/dL LAB HEMATOLOGY METHOD 02/04/2025 9:05 AM EDT [facility] Hematocrit 33.5(L) 41.0 - 52.0 % LAB HEMATOLOGY METHOD 02/04/2025 9:05 AM EDT [facility] MCV 92 80 - 100 fL LAB HEMATOLOGY METHOD 02/04/2025 9:05 AM EDT [facility] MCH 29.6 26.0 - 34.0 pg LAB HEMATOLOGY METHOD 02/04/2025 9:05 AM EDT [facility] MCHC 32.2 32.0 - 36.0 g/dL LAB HEMATOLOGY METHOD 02/04/2025 9:05 AM EDT [facility] RDW 11.3(L) 11.5 - 14.5 % LAB HEMATOLOGY METHOD 02/04/2025 9:05 AM EDT [facility] Platelets 252 150 - 450 x10*3/uL LAB HEMATOLOGY METHOD 02/04/2025 9:05 AM EDT [facility] Neutrophils % 66.1 40.0 - 80.0 % LAB HEMATOLOGY METHOD 02/04/2025 9:05 AM EDT [facility] Immature Granulocytes %, Automated 0.6 0.0 - 0.9 % LAB HEMATOLOGY METHOD 02/04/2025 9:05 AM [facility] Comment:Immature Granulocyte Count (IG) includes promyelocytes, myelocytes and metamyelocytes but does not include bands. Percent differential counts (%) should be interpreted in the context of the absolute cell counts (cells/UL). Lymphocytes % 14.3 13.0 - 44.0 % LAB HEMATOLOGY METHOD 02/04/2025 9:05 AM EDT [facility] Monocytes % 11.0 2.0 - 10.0 % LAB HEMATOLOGY METHOD 02/04/2025 9:05 AM EDT [facility] Eosinophils % 6.8 0.0 - 6.0 % LAB HEMATOLOGY METHOD 02/04/2025 9:05 AM EDT [facility] Basophils % 1.2 0.0 - 2.0 % LAB HEMATOLOGY METHOD 02/04/2025 9:05 AM EDT [facility] Neutrophils Absolute 4.45 1.20 - 7.70 x10*3/uL LAB HEMATOLOGY METHOD 02/04/2025 9:05 AM [facility] Comment:Percent differential counts (%) should be interpreted in the context of the absolute cell counts (cells/uL). Immature Granulocytes Absolute, Automated 0.04 0.00 - 0.70 x10*3/uL LAB HEMATOLOGY METHOD 02/04/2025 9:05 AM T [facility] Lymphocytes Absolute 0.96(L) 1.20 - 4.80 x10*3/uL LAB HEMATOLOGY METHOD 02/04/2025 9:05 AM [facility] Monocytes Absolute 0.74 0.10 - 1.00 x10*3/uL LAB HEMATOLOGY METHOD 02/04/2025 9:05 AM [facility] Eosinophils Absolute 0.46 0.00 - 0.70 x10*3/uL LAB HEMATOLOGY METHOD 02/04/2025 9:05 AM [facility] Basophils Absolute 0.08 0.00 - 0.10 x10*3/uL LAB HEMATOLOGY METHOD 02/04/2025 9:05 AM [facility] Blood Venous blood specimen / Unknown Venipuncture / Unknown 02/04/2025 8:00 AM EDT 02/04/2025 8:31 AM EDT us Judith Flores MD LAB BLOOD ORDERABL ES Final Result Performing Organization Address [facility] Co de Phone Number [facility] [address] [place] [phone] * Magnesium (02/04/2025 8:00 AM EDT) Only the most recent of15 resultswithin the time period is included. Magnesium 2.08 1.60 - 2.40 mg/dL LAB CHEMISTRY METHOD 02/04/2025 9:54 AM EDT [facility] Blood Venous blood specimen / Unknown Venipuncture / Unknown 02/04/2025 8:00 AM EDT 02/04/2025 8:32 AM EDT us Judith Flores MD LAB BLOOD ORDERABL ES Final Result Performing Organization Address [facility] de Phone Number [facility] [address] [place] [phone] * Lactate (02/04/2025 8:00 AM EDT) Only the most recent of15 resultswithin the time period is included. Lactate 0.7 0.4 - 2.0 mmol/L LAB CHEMISTRY METHOD 02/04/2025 9:35 AM EDT [facility] Blood Venous blood specimen / Unknown Venipuncture / Unknown 02/04/2025 8:00 AM EDT 02/04/2025 8:38 AM EDT Narrative [facility] - 02/04/2025 9:35 AM EDT Venipuncture immediately after or during the administration of Metamizole may lead to falsely low results. Testing should be performed immediately prior to Metamizole dosing. us Judith Flores MD LAB BLOOD ORDERABL ES Final Result Performing Organization Address [facility] Co de Phone Number [facility] [address] [place] [phone] * (ABNORMAL) Renal Function Panel (02/04/2025 8:00 AM EDT) Only the most recent of16 resultswithin the time period is included. [facility] Glucose 100(H) 74 - 99 mg/dL LAB CHEMISTRY METHOD 02/04/2025 9:54 AM EDT [facility] Sodium 137 136 - 145 mmol/L LAB CHEMISTRY METHOD 02/04/2025 9:54 AM EDT [facility] Potassium 3.5 3.5 - 5.3 mmol/L LAB CHEMISTRY METHOD 02/04/2025 9:54 AM EDT [facility] Chloride 103 98 - 107 mmol/L LAB CHEMISTRY METHOD 02/04/2025 9:54 AM EDT [facility] Bicarbonate 24 21 - 32 mmol/L LAB CHEMISTRY METHOD 02/04/2025 9:54 AM EDT [facility] Anion Gap 14 10 - 20 mmol/L LAB CHEMISTRY METHOD 02/04/2025 9:54 AM EDT [facility] Urea Nitrogen 13 6 - 23 mg/dL LAB CHEMISTRY METHOD 02/04/2025 9:54 AM EDT [facility] Creatinine 1.10 0.50 - 1.30 mg/dL LAB CHEMISTRY METHOD 02/04/2025 9:54 AM EDT [facility] eGFR 79 >60 mL/min/1. 73m*2 LAB CHEMISTRY METHOD 02/04/2025 9:54 AM EDT [facility] Comment: Calculations of estimated GFR are performed using the 2020 CKD-EPI Study Refit equation without the race variable for the IDMS-Traceable creatinine methods. https://jasn.asnjournals.org/content//ASN.4179650449 Calcium 8.1(L) 8.6 - 10.6 mg/dL LAB CHEMISTRY METHOD 02/04/2025 9:54 AM EDT [facility] Phosphorus 3.5 2.5 - 4.9 mg/dL LAB CHEMISTRY METHOD 02/04/2025 9:54 AM EDT [facility] Comment:The performance kerry acteristics of phosphorus testing in heparinized plasma have been validated by the individual laboratory site where testing is performed. Testing on heparinized plasma is not approved by the FDA; however, such approval is not necessary. Albumin 3.2(L) 3.4 - 5.0 g/dL LAB CHEMISTRY METHOD 02/04/2025 9:54 AM EDT [facility] Blood Venous blood specimen / Unknown Venipuncture / Unknown 02/04/2025 8:00 AM EDT 02/04/2025 8:32 AM EDT us Judith Flores MD LAB BLOOD ORDERABL ES Final Result [facility] [address] [place] [address] * SWAN INSERTION, RHC (02/01/2025 2:00 PM EDT) 02/01/2025 1:10 PM EDT Narrative SYNGO - 02/02/2025 9:40 AM EDT [facility], Lead Advisor, [address] [place] [address] Cardiovascular Catheterization Report Patient Name: RONEY MONTILLA Performing Physician: [id number] Gore MD Study Date: 02/01/2025 Verifying Physician: Giuseppe Gore MD MRN/PID: [id number] [employer]: Ordering Provider: [id number] JUDITH FLORES Date of /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 Hypoxia. Procedure Description: After infiltration of local anesthetic, the right external jugular vein was identified with two-dimensional ultrasound. Under direct ultrasound visualization, the right external jugular vein was cannulated with a micropuncture technique. A 5 Andorran sheath was placed in the vein. Post-procedure, the venous sheath was pulled and pressure was applied to the site. Right Heart Catheterization: RA: 14 RV: 56/12 PA: 55/24 (mean 36) PCWP: 23 RA Sat: 67% PA Sat: 63% Jane CO/CI: 10.84/5.06. Hemo Personnel: + +---------+ Name Duty + +---------+ Partha Gore MD, MD 1 + +---------+ Hemodynamic Pressures: +----+ +---------+ + +---+----+-------+-------+ Site Date Time Phase Systolic mmHg Diastolic ED Mean A-Wave V-Wave Name mmHg mmH mmHg mmHg mmHg g +----+ +---------+ + +---+----+-------+-------+ AO 02/01/2025 [facility] 130 55 76 1:52:51 PM +----+ +---------+ + +---+----+-------+-------+ RA 02/01/2025 [facility] 14 19 18 1:53:33 PM +----+ +---------+ + +---+----+-------+-------+ RV 02/01/2025 [facility] 56 11 20 1:54:27 PM +----+ +---------+ + +---+----+-------+-------+ PW 02/01/2025 [facility] 23 28 34 1:55:01 PM +----+ +---------+ + +---+----+-------+-------+ PA 02/01/2025 [facility] 51 18 34 1:55:21 PM +----+ +---------+ + +---+----+-------+-------+ PA 02/01/2025 [facility] 50 19 36 1:55:34 PM +----+ +---------+ + +---+----+-------+-------+ Oxygen Saturation %: + + + + Sample Site O2 Sat (%) HB (g/100ml) + + + + AO 88 9.2 + + + + RA 67 9.2 + + + + AO 88 9.2 + + + + PA 63 9.2 + + + + Cardiac Outputs: + + +-------+ JANE CO (l/min) JANE CI (l/min/m2) JANE SV + + +-------+ 10.8 5.1 130.6 + + +-------+ Vascular Resistance Calculated Values (Wood Units): +-----+---+----+-------+---+----+---+----+---+----+-------+ Phase PVR PVRI PVR/SVR SVR SVRI TPR TPRI TVR TVRI TPR/TVR +-----+---+----+-------+---+----+---+----+---+----+-------+ 1 1.2 2.6 0 5.7 12.2 3.7 8.0 7.0 15.0 1 +-----+---+----+-------+---+----+---+----+---+----+-------+ Complications: No in-lab complications observed. Cardiac Cath Post Procedure Notes: Post Procedure Diagnosis: Elevated right and left sided filling pressures Preserved cardiac output by Jane's estimation. Blood Loss: Estimated blood loss during the procedure was 3 mls. Specimens Removed: Number of specimen(s) removed: none. ____ CONCLUSIONS: 1. Elevated right and left sided filling pressures. 2. Preserved cardiac output by Jane's estimation. ICD 10 Codes: Respiratory failure, unspecified with hypoxia-J96.91 CPT Codes: Right Heart Cath O2/Cardiac output without biopsy (RHC)-89759; Moderate Sedation Services initial 15 minutes patient >5 years-32189; Ultrasound guidance for needle placement-[id number] Partha Gore MD Performing Physician Final Procedure Note Partha Gore MD - 02/02/2025 [facility], Lead Advisor, [address] [place] [address] Cardiovascular Catheterization Report Patient Name: RONEY MONTILLA Performing Physician: Ranjit Gore MD Study Date: 02/01/2025 Verifying Physician: Ranjit Gore MD MRN/PID: [id number] [employer]-Scrub: Ordering Provider: [id number] SUMMERS Date of /Age: 12 1970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 Procedure Description: After infiltration of local anesthetic, the right external jugular veinwas identified with two-dimensional ultrasound. Under direct ultrasoundvisualization, the right external jugular vein was cannulated with amicropuncture technique. A 5 Andorran sheath was placed in the vein.Post-procedure, the venous sheath was pulled and pressure was applied tothe site. Right Heart Catheterization: RA: 14 RV: 56/12 PA: 55/24 (mean 36) PCWP: 23 RA Sat: 67% PA Sat: 63% Jane CO/CI: 10.84/5.06. Hemo Personnel: + +---------+ Name Duty + +---------+ Partha Gore MD, MD 1 + +---------+ Hemodynamic Pressures: +----+ +---------+ + +---+----+-------+-------+ Site Date Time Phase Systolic mmHg Diastolic ED Mean A-Wave V-Wave Name mmHg mmH mmHg mmHg mmHg g +----+ +---------+ + +---+----+-------+-------+ AO 02/01/2025 [facility] 130 55 76 1:52:51 PM +----+ +---------+ + +---+----+-------+-------+ RA 02/01/2025 [facility] 14 19 18 1:53:33 PM +----+ +---------+ + +---+----+-------+-------+ RV 02/01/2025 [facility] 56 11 20 1:54:27 PM +----+ +---------+ + +---+----+-------+-------+ PW 02/01/2025 [facility] 23 28 34 1:55:01 PM +----+ +---------+ + +---+----+-------+-------+ PA 02/01/2025 [facility] 51 18 34 1:55:21 PM +----+ +---------+ + +---+----+-------+-------+ PA 02/01/2025 [facility] 50 19 36 1:55:34 PM +----+ +---------+ + +---+----+-------+-------+ Oxygen Saturation %: + + + + Sample Site O2 Sat (%) HB (g/100ml) + + + + AO 88 9.2 + + + + RA 67 9.2 + + + + AO 88 9.2 + + + + PA 63 9.2 + + + + Cardiac Outputs: + + +-------+ JANE CO (l/min) JANE CI (l/min/m2) JANE SV + + +-------+ 10.8 5.1 130.6 + + +-------+ Vascular Resistance Calculated Values (Wood Units): +-----+---+----+-------+---+----+---+----+---+----+-------+ Phase PVR PVRI PVR/SVR SVR SVRI TPR TPRI TVR TVRI TPR/TVR +-----+---+----+-------+---+----+---+----+---+----+-------+ 1 1.2 2.6 0 5.7 12.2 3.7 8.0 7.0 15.0 1 +-----+---+----+-------+---+----+---+----+---+----+-------+ Complications: No in-lab complications observed. Cardiac Cath Post Procedure Notes: Post Procedure Diagnosis: Elevated right and left sided fillingpressures Preserved cardiac output by Jane's estimation. Blood Loss: Estimated blood loss during the procedure was 3mls. Specimens Removed: Number of specimen(s) removed: none. ____ CONCLUSIONS: 1. Elevated right and left sided filling pressures. 2. Preserved cardiac output by Jane's estimation. ICD 10 Codes: Respiratory failure, unspecified with hypoxia-J96.91 CPT Codes: Right Heart Cath O2/Cardiac output without biopsy (RHC)-42442; ModerateSedation Services initial 15 minutes patient >5 years-90133; Ultrasoundguidance for needle placement-[id number] Partha Gore MD Performing Physician Final us Judith Flores MD CV CARDIAC CATH DC OCEDURES Final Result [facility] * (ABNORMAL) Blood Gas Arterial Full Panel (02/01/2025 10:15 AM EDT) Only the most recent of19 resultswithin the time period is included. [facility] POCT pH, Arterial 7.42 7.38 - 7.42 pH 02/01/2025 10:22 AM EDT [facility] POCT pCO2, Arterial 35(L) 38 - 42 mm Hg 02/01/2025 10:22 AM EDT [facility] POCT pO2, Arterial 61(L) 85 - 95 mm Hg 02/01/2025 10:22 AM EDT [facility] POCT SO2, Arterial 93(L) 94 - 100 % 02/01/2025 10:22 AM EDT [facility] POCT Oxy Hemoglobin, Arterial 90.8(L) 94.0 - 98.0 % 02/01/2025 10:22 AM EDT [facility] POCT Hematocrit Calculated, Arterial 32.0(L) 41.0 - 52.0 % 02/01/2025 10:22 AM EDT [facility] POCT Sodium, Arterial 134(L) 136 - 145 mmol/L 02/01/2025 10:22 AM EDT [facility] POCT Potassium, Arterial 3.5 3.5 - 5.3 mmol/L 02/01/2025 10:22 AM EDT [facility] POCT Chloride, Arterial 102 98 - 107 mmol/L 02/01/2025 10:22 AM EDT [facility] POCT Ionized Calcium, Arterial 1.15 1.10 - 1.33 mmol/L 02/01/2025 10:22 AM EDT [facility] POCT Glucose, Arterial 117(H) 74 - 99 mg/dL 02/01/2025 10:22 AM EDT [facility] POCT Lactate, Arterial 0.4 0.4 - 2.0 mmol/L 02/01/2025 10:22 AM EDT [facility] POCT Base Excess, Arterial -1.4 -2.0 - 3.0 mmol/L 02/01/2025 10:22 AM EDT [facility] POCT HCO3 Calculated, Arterial 22.7 22.0 - 26.0 mmol/L 02/01/2025 10:22 AM EDT [facility] POCT Hemoglobin, Arterial 10.6(L) 13.5 - 17.5 g/dL 02/01/2025 10:22 AM EDT [facility] POCT Anion Gap, Arterial 13 10 - 25 mmo/L 02/01/2025 10:22 AM EDT [facility] Patient Temperature 37.0 degrees Celsius 02/01/2025 10:22 AM EDT [facility] FiO2 60 % 02/01/2025 10:22 AM EDT [facility] Blood Arterial blood specimen / Unknown Arterial Puncture / Unknown 02/01/2025 10:15 AM EDT 02/01/2025 10:15 AM EDT us Judith Flores MD LAB BLOOD ORDERABL ES Final Result [facility] [address] [facility] [id number] [place] [address] * Sars-CoV-2 and Influenza A/B PCR (02/01/2025 8:40 AM EDT) Flu A Result Not Detected Not Detected POLYMERASE CHAIN REACTION 02/01/2025 12:33 PM EDT [facility] Flu B Result Not Detected Not Detected POLYMERASE CHAIN REACTION 02/01/2025 12:33 PM EDT [facility] Coronavirus 2019, PCR Not Detected Not Detected SIMPLEXA COVID-19 DIRECT ASSAY[facility] 02/01/2025 12:33 PM EDT [facility] Swab Nasopharyngeal swab / Unknown Non-blood Collection / Unknown 02/01/2025 8:40 AM EDT 02/01/2025 9:16 AM EDT Narrative [facility] - 02/01/2025 12:33 PM EDT This assay is an FDA-cleared, in vitro diagnostic nucleic acid amplification test for the qualitative detection and differentiation of SARS CoV-2/ Influenza A/B from nasopharyngeal specimens collected from individuals with signs and symptoms of respiratory tract infections, and has been validated for use at [facility]. Negative results do not preclude COVID-19/ Influenza A/B infections and should not be used as the sole basis for diagnosis, treatment, or other management decisions. Testing for SARS CoV-2 is recommended only for patients who meet current clinical and/or epidemiological criteria defined by federal, state, or local public health directives. Judith Flores MD LAB MOLECULAR DIAG NOSTICS ORDERABLES Final Result [facility] [address] [facility] [address] [place] [id number] * (ABNORMAL) Blood Gas Venous Full Panel (02/01/2025 3:35 AM EDT) POCT pH, Venous 7.46(H) 7.33 - 7.43 pH 02/01/2025 3:40 AM EDT [facility] POCT pCO2, Venous 33(L) 41 - 51 mm Hg 02/01/2025 3:40 AM EDT [facility] POCT pO2, Venous 55(H) 35 - 45 mm Hg 02/01/2025 3:40 AM EDT [facility] POCT SO2, Venous 89(H) 45 - 75 % 02/02/20 25 3:40 AM EDT [facility] POCT Oxy Hemoglobin, Venous 86.8(H) 45.0 - 75.0 % 02/01/2025 3:40 AM EDT [facility] POCT Hematocrit Calculated, Venous 32.0(L) 41.0 - 52.0 % 02/01/2025 3:40 AM EDT [facility] POCT Sodium, Venous 132(L) 136 - 145 mmol/L 02/01/2025 3:40 AM EDT [facility] POCT Potassium, Venous 3.6 3.5 - 5.3 mmol/L 02/01/2025 3:40 AM EDT [facility] POCT Chloride, Venous 103 98 - 107 mmol/L 02/01/2025 3:40 AM EDT [facility] POCT Ionized Calicum, Venous 1.14 1.10 - 1.33 mmol/L 02/01/2025 3:40 AM EDT [facility] POCT Glucose, Venous 115(H) 74 - 99 mg/dL 02/01/2025 3:40 AM EDT [facility] POCT Lactate, Venous 0.5 0.4 - 2.0 mmol/L 02/01/2025 3:40 AM EDT [facility] POCT Base Excess, Venous 0.1 -2.0 - 3.0 mmol/L 02/01/2025 3:40 AM EDT [facility] POCT HCO3 Calculated, Venous 23.5 22.0 - 26.0 mmol/L 02/01/2025 3:40 AM EDT [facility] POCT Hemoglobin, Venous 10.6(L) 13.5 - 17.5 g/dL 02/01/2025 3:40 AM EDT [facility] POCT Anion Gap, Venous 9.0(L) 10.0 - 25.0 mmol/L 02/01/2025 3:40 AM EDT [facility] Patient Temperature 37.0 degrees Celsius 02/01/2025 3:40 AM EDT [facility] FiO2 50 % 02/01/2025 3:40 AM EDT [facility] Blood Venous blood specimen / Unknown Venipuncture / Unknown 02/01/2025 3:35 AM EDT 02/01/2025 3:35 AM EDT Judith Flores MD LAB BLOOD ORDERABL ES Final Result [facility] [address] [address] [place] [id number] * XR chest 1 view (01/31/2025 8:12 PM EDT) Only the most recent of5 resultswithin the time period is included. Anatomical Region Laterality Modality Thoracic, Chest Computed Radiogr aphy 01/31/2025 9:31 PM EDT 02/01/2025 8:29 AM EDT Impressions 02/01/2025 8:28 AM EDT 1. Interval worsening of hazy and patchy airspace opacities throughout the mid to lower lungs, that would likely represent worsening pulmonary edema. An associated infectious etiology could be considered. 2. Similar appearance of small bilateral pleural effusions. I personally reviewed the images/study and resident's interpretation and I agree with the findings as stated by Rosangela Masters MD (resident radiologist). This study was analyzed and interpreted at [facility], [place], [place]. MACRO: None Signed by: Zohaib Carmen 02/01/2025 8:28 AM Dictation workstation: [id number] Narrative 02/01/2025 8:28 AM EDT Interpreted By: Zohaib Carmen and Hofer Lindsay STUDY: XR CHEST 1 VIEW; 01/31/2025 8:12 pm INDICATION: Signs/Symptoms:sob. COMPARISON: None. ACCESSION NUMBER(S): [id number] ORDERING CLINICIAN: JUDITH FLORES FINDINGS: AP radiograph of the chest was provided. CARDIOMEDIASTINAL SILHOUETTE: Cardiomediastinal silhouette is stable in size and configuration. LUNGS: Slight interval worsening of hazy and patchy opacities within the bilateral lower lungs. Blunting of the bilateral costophrenic angles. No evidence of pneumothorax. ABDOMEN: No remarkable upper abdominal findings. BONES: No acute osseous changes. Procedure Note Zohaib Carmen MD - 02/01/2025 Interpreted By: Zohaib Carmen and Hofer Lindsay STUDY: XR CHEST 1 VIEW; 01/31/2025 8:12 pm INDICATION: Signs/Symptoms:sob. COMPARISON: None. ACCESSION NUMBER(S): [id number] ORDERING CLINICIAN: JUDITH FLORES FINDINGS: AP radiograph of the chest was provided. CARDIOMEDIASTINAL SILHOUETTE: Cardiomediastinal silhouette is stable in size and configuration. LUNGS: Slight interval worsening of hazy and patchy opacities within the bilateral lower lungs. Blunting of the bilateral costophrenic angles. No evidence of pneumothorax. ABDOMEN: No remarkable upper abdominal findings. BONES: No acute osseous changes. IMPRESSION: 1. Interval worsening of hazy and patchy airspace opacities throughout the mid to lower lungs, that would likely represent worsening pulmonary edema. An associated infectious etiology could be considered. 2. Similar appearance of small bilateral pleural effusions. I personally reviewed the images/study and resident's interpretation and I agree with the findings as stated by Rosangela Masters MD (resident radiologist). This study was analyzed and interpreted at [place], [place]. MACRO: None Signed by: Zohaib Carmen 02/01/2025 8:28 AM Dictation workstation: [id number] Judith Flores MD IMG XR PROCEDURES Final Result * CT angio chest abdomen pelvis (01/31/2025 5:56 PM EDT) Only the most recent of2 resultswithin the time period is included. Anatomical Region Laterality Modality Thoracic, Body Computed Tomogra phy 01/31/2025 6:57 PM EDT 02/01/2025 6:02 AM EDT Impressions 02/01/2025 6:00 AM EDT 1. 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 The dissection flap also appears to extend into the proximal left renal artery. Both kidneys are well perfused. Accompanying intramural hematoma within the descending thoracic aorta, also described above. 2. Interval worsening of consolidative ground-glass like opacities within the lung, with worsening bilateral pleural effusions. Findings likely represent worsening pulmonary edema. Correlate with volume status. However, a superimposed infectious process can not be excluded. 3. 2.7 cm peripheral hypodense lesion within segment V/ of the liver is incompletely evaluated on this exam, but could represent a hemangioma. A nonemergent ultrasound of the liver can be obtained for further evaluation. 4. Additional stable findings as above. I personally reviewed the images/study and I agree with the findings as stated. This study was interpreted at [place], [place]. Signed by: Edouard Stevens 02/01/2025 6:00 AM Dictation workstation: [id number] Narrative 02/01/2025 6:00 AM EDT Interpreted By: Edouard Stevens, and Cherrie Omer STUDY: CT ANGIO CHEST ABDOMEN PELVIS; 01/31/2025 5:56 pm INDICATION: Signs/Symptoms:Assess Type B Dissection. COMPARISON: CT chest without contrast on 01/26/2025 CT angio chest abdomen pelvis on 01/23/2025 ACCESSION NUMBER(S): [id number] ORDERING CLINICIAN: JUDITH FLORES TECHNIQUE: Axial non-contrast images of the chest abdomen, and pelvis. Axial CT images of the chest, abdomen and pelvis were obtained after the intravenous administration of 100 mL Omnipaque 350 using angiographic technique with coronal and sagittal reformatted images. MIP images and 3D reconstructions were created on an independent workstation and reviewed. FINDINGS: VASCULATURE: PULMONARY ARTERIES: Pulmonary arteries are normal in caliber. Within the limitations of a non tailored study, no acute central pulmonary embolism. THORACIC AND ABDOMINAL AORTA: Non-contrast images show no evidence of acute intramural hematoma. Ascending thoracic aorta is unremarkable. 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 There is a fenestration visualized of the proximal portion of the aortic dissection within zone 3 with contrast opacification both the true and false lumen, similar to prior. There is also crescentic hyperdensity adjacent to the aortic arch and descending thoracic aorta, which is seen on noncontrast images, likely representing and accompanying intramural hematoma (series 201, image 107/697). Sino-tubular junction is preserved. Normal three-vessel aortic arch. Although branch vessels are widely patent with normal contrast opacification. The aortic dissection extends throughout the course of the abdominal aorta, extending into the left common iliac artery as well as the proximal aspects of the left external internal iliac arteries. Celiac artery, SMA, AKBAR, right renal artery are supplied by the true lumen, and are normal in caliber. The dissection extends into the proximal left renal artery, which however demonstrate normal distal contrast opacification. Bilateral common femoral and visualized superficial femoral artery is unremarkable. CT CHEST: MEDIASTINUM AND LYMPH NODES: Multiple prominent mediastinal hilar lymph nodes, with a right upper paratracheal lymph node measuring up to 1.3 cm in short axis, similar to prior, likely reactive. No pneumomediastinum. HEART: Normal size. Mild coronary artery calcifications. No significant pericardial effusion. LUNG, PLEURA, LARGE AIRWAYS: Interval mild increase in tfymr-kbmgcmq-llee-left small to moderate pleural effusions with superimposed consolidative opacities. There has been interval development of extensive ground-glass and consolidative opacities within the mfatm-gjzkcxm-zxjk-left upper lobes. Background of mild upper lobe predominant emphysematous changes. Scattered calcified granulomas. OSSEOUS STRUCTURES: No acute osseous abnormality. CHEST WALL SOFT TISSUES: No discernible abnormality. CT ABDOMEN/PELVIS: ABDOMINAL WALL: No significant abnormality. LIVER: The liver is normal in size. There is similar appearance of a 2.7 x 1.7 cm lobulated exophytic hypodense lesion within segment V/ of the liver, which is incompletely evaluated on this exam. BILE DUCTS: No significant intrahepatic or extrahepatic dilatation. GALLBLADDER: No significant abnormality. PANCREAS: No significant abnormality. SPLEEN: No significant abnormality. ADRENALS: No significant abnormality. KIDNEYS, URETERS, BLADDER: The kidneys are normal in size enhance symmetrically. There is mild perinephric fat stranding around bilateral kidneys, which are similar to prior. Tiny hypodense lesions in the bilateral kidneys, which are too small to be characterized, however statistically favored to represent simple cysts. REPRODUCTIVE ORGANS: No significant abnormality. VESSELS: (See above). No additional significant abnormality. RETROPERITONEUM/LYMPH NODES: No enlarged lymph nodes. BOWEL/MESENTERY/PERITONEUM: No inflammatory bowel wall thickening or dilatation. Colonic diverticulosis without evidence of diverticulitis. Normal appendix. No significant ascites, free air, or fluid collection. OSSEOUS STRUCTURES: No acute osseous abnormality. Similar appearance of chronic nondisplaced rib fractures of the left 4th to 7th ribs. Procedure Note Edouard Stevens MD - 02/01/2025 Interpreted By: Edouard Stevens and Bera Kaustav STUDY: CT ANGIO CHEST ABDOMEN PELVIS; 01/31/2025 5:56 pm INDICATION: Signs/Symptoms:Assess Type B Dissection. COMPARISON: CT chest without contrast on 01/26/2025 CT angio chest abdomen pelvis on 01/23/2025 ACCESSION NUMBER(S): [id number] ORDERING CLINICIAN: JUDITH FLORES TECHNIQUE: Axial non-contrast images of the chest abdomen, and pelvis. Axial CT images of the chest, abdomen and pelvis were obtained after the intravenous administration of 100 mL Omnipaque 350 using angiographic technique with coronal and sagittal reformatted images. MIP images and 3D reconstructions were created on an independent workstation and reviewed. FINDINGS: VASCULATURE: PULMONARY ARTERIES: Pulmonary arteries are normal in caliber. Within the limitations of a non tailored study, no acute central pulmonary embolism. THORACIC AND ABDOMINAL AORTA: Non-contrast images show no evidence of acute intramural hematoma. Ascending thoracic aorta is unremarkable. Again seen, Jona type B aortic dissection distal to the origin of the left subclavian artery involving zones 327. There is a fenestration visualized of the proximal portion of the aortic dissection within zone 3 with contrast opacification both the true and false lumen, similar to prior. There is also crescentic hyperdensity adjacent to the aortic arch and descending thoracic aorta, which is seen on noncontrast images, likely representing and accompanying intramural hematoma (series 201, image 107/697). Sino-tubular junction is preserved. Normal three-vessel aortic arch. Although branch vessels are widely patent with normal contrast opacification. The aortic dissection extends throughout the course of the abdominal aorta, extending into the left common iliac artery as well as the proximal aspects of the left external internal iliac arteries. Celiac artery, SMA, AKBAR, right renal artery are supplied by the true lumen, and are normal in caliber. The dissection extends into the proximal left renal artery, which however demonstrate normal distal contrast opacification. Bilateral common femoral and visualized superficial femoral artery is unremarkable. CT CHEST: MEDIASTINUM AND LYMPH NODES: Multiple prominent mediastinal hilar lymph nodes, with a right upper paratracheal lymph node measuring up to 1.3 cm in short axis, similar to prior, likely reactive. No pneumomediastinum. HEART: Normal size. Mild coronary artery calcifications. No significant pericardial effusion. LUNG, PLEURA, LARGE AIRWAYS: Interval mild increase in ixejw-ezzsgdd-hhcm-left small to moderate pleural effusions with superimposed consolidative opacities. There has been interval development of extensive ground-glass and consolidative opacities within the htxxz-dqjpepb-qgcc-left upper lobes. Background of mild upper lobe predominant emphysematous changes. Scattered calcified granulomas. OSSEOUS STRUCTURES: No acute osseous abnormality. CHEST WALL SOFT TISSUES: No discernible abnormality. CT ABDOMEN/PELVIS: ABDOMINAL WALL: No significant abnormality. LIVER: The liver is normal in size. There is similar appearance of a 2.7 x 1.7 cm lobulated exophytic hypodense lesion within segment V/ of the liver, which is incompletely evaluated on this exam. BILE DUCTS: No significant intrahepatic or extrahepatic dilatation. GALLBLADDER: No significant abnormality. PANCREAS: No significant abnormality. SPLEEN: No significant abnormality. ADRENALS: No significant abnormality. KIDNEYS, URETERS, BLADDER: The kidneys are normal in size enhance symmetrically. There is mild perinephric fat stranding around bilateral kidneys, which are similar to prior. Tiny hypodense lesions in the bilateral kidneys, which are too small to be characterized, however statistically favored to represent simple cysts. REPRODUCTIVE ORGANS: No significant abnormality. VESSELS: (See above). No additional significant abnormality. RETROPERITONEUM/LYMPH NODES: No enlarged lymph nodes. BOWEL/MESENTERY/PERITONEUM: No inflammatory bowel wall thickening or dilatation. Colonic diverticulosis without evidence of diverticulitis. Normal appendix. No significant ascites, free air, or fluid collection. OSSEOUS STRUCTURES: No acute osseous abnormality. Similar appearance of chronic nondisplaced rib fractures of the left 4th to 7th ribs. IMPRESSION: 1. 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 The dissection flap also appears to extend into the proximal left renal artery. Both kidneys are well perfused. Accompanying intramural hematoma within the descending thoracic aorta, also described above. 2. Interval worsening of consolidative ground-glass like opacities within the lung, with worsening bilateral pleural effusions. Findings likely represent worsening pulmonary edema. Correlate with volume status. However, a superimposed infectious process can not be excluded. 3. 2.7 cm peripheral hypodense lesion within segment V/ of the liver is incompletely evaluated on this exam, but could represent a hemangioma. A nonemergent ultrasound of the liver can be obtained for further evaluation. 4. Additional stable findings as above. I personally reviewed the images/study and I agree with the findings as stated. This study was interpreted at [facility], [place], [place]. Signed by: Edouard Stevens 02/01/2025 6:00 AM Dictation workstation: [id number] Judith Flores MD IMG CT PROCEDURES Final Result * (ABNORMAL) B-Type Natriuretic Peptide (01/31/2025 5:02 AM EDT) Only the most recent of2 resultswithin the time period is included. BNP 340(H) 0 - 99 pg/mL LAB IMMUNOASSAY METHOD 01/31/2025 9:34 PM EDT [facility] Blood Venous blood specimen / Unknown Arterial Line / Unknown 01/31/2025 5:02 AM EDT 01/31/2025 5:24 AM EDT Narrative [facility] - 01/31/2025 9:34 PM EDT <100 pg/mL - Heart failure unlikely 100-299 pg/mL - Intermediate probability of acute heart failure exacerbation. Correlate with clinical context and patient history. >=300 pg/mL - Heart Failure likely. Correlate with clinical context and patient history. Biotin interference may cause falsely decreased results. Patients taking a Biotin dose of up to 5 mg/day should refrain from taking Biotin for 24 hours before sample collection. Providers may contact their local laboratory for further information. us Judith Flores MD LAB BLOOD ORDERABL ES Final Result [facility] [address] [place] [address] * Reticulocytes (01/27/2025 5:20 AM EDT) Retic % 1.9 0.5 - 2.0 % LAB HEMATOLOGY METHOD 01/27/2025 10:50 AM EDT [facility] Retic Absolute 0.060 0.022 - 0.118 x10*6/uL LAB HEMATOLOGY METHOD 01/27/2025 10:50 AM EDT [facility] Reticulocyte Hemoglobin 34 28 - 38 pg LAB HEMATOLOGY METHOD 01/27/2025 10:50 AM EDT [facility] Immature Retic fraction 12.3 <=16.0 % LAB HEMATOLOGY METHOD 01/27/2025 10:50 AM EDT [facility] Comment:Reticulocytes are me asured based on a fluorescent technique. The IRF, or immature reticulocyte fraction, is the percent of reticulocytes that show medium (MFR) or high (HFR) fluorescence. This value can be used to assess the relative maturity of the reticulocyte population in response to anemia. The shift reticulocytes are not measured by this technique, eliminating the need for their correction in the reticulocyte index. Blood Venous blood specimen / Unknown Arterial Line / Unknown 01/27/2025 5:20 AM EDT 01/27/2025 6:05 AM EDT Abena Small MD LAB BLOOD ORDERABLES Final Res ult Performing Organization Address [facility] Co de Phone Number [facility] [id number] [place] [phone] * Vancomycin, Trough (01/27/2025 5:20 AM EDT) Vancomycin, Trough 12.0 5.0 - 20.0 ug/mL LAB CHEMISTRY METHOD 01/27/2025 6:49 AM EDT [facility] Comment: Therapeutic Ranges: Peak (all ages): 30.0-40.0 ug/mL Trough (all ages): 10.0-20.0 ug/mL Vancomycin trough concentrations drawn immediately prior to the next dose at steady-state are preferred for concentration-guided monitoring of patients treated with vancomycin. Reference: Am J Health-Syst Pharm. 2020; 77(11):835-864. Blood Venous blood specimen / Unknown Arterial Line / Unknown 01/27/2025 5:20 AM EDT 01/27/2025 6:05 AM EDT Abena Small MD LAB BLOOD ORDERABLES Final Res ult Performing Organization Address [facility] de Phone Number [facility] [address] [place] [phone] * CT chest wo IV contrast (01/26/2025 2:39 PM EDT) Anatomical Region Laterality Modality Thoracic, Chest Computed Tomogra phy 01/26/2025 4:51 PM EDT 01/26/2025 4:51 PM EDT Impressions 01/26/2025 4:50 PM EDT 1. Small bilateral pleural effusions and bibasilar airspace consolidations with associated air bronchograms, new from prior and favored to represent compressive atelectasis. Superimposed infection is not entirely excluded. 2. Small hiatal hernia. 3. Mild coronary artery calcifications. I personally reviewed the image(s)/study and interpretation by Filiberto Adkins MD (resident). MACRO: None Signed by: Eliezer Melendez 01/26/2025 4:50 PM Dictation workstation: [id number] 01/26/2025 4:50 PM EDT Interpreted By: Eliezer Melendez and Booth Cameron STUDY: CT CHEST WO IV CONTRAST; 01/26/2025 2:39 pm INDICATION: Signs/Symptoms:Acute hypoxemic respiratory failure. COMPARISON: CT ANGIO CHEST 01/22/2025 ACCESSION NUMBER(S): [id number] ORDERING CLINICIAN: ABENA SMALL TECHNIQUE: Helical data acquisition of the chest was obtained without IV contrast material. Images were reformatted in axial, coronal, and sagittal planes. FINDINGS: LUNGS AND AIRWAYS: The trachea and central airways are patent. No endobronchial lesion. Small bilateral pleural effusions with associated bibasilar compressive atelectasis/airspace consolidations with associated air bronchograms. Scattered calcified granulomas are visualized. Mild upper lung predominant emphysematous changes are again seen. MEDIASTINUM AND MALINI, LOWER NECK AND AXILLA: The visualized thyroid gland is within normal limits. No evidence of thoracic lymphadenopathy by CT criteria. Small hiatal hernia. HEART AND VESSELS: Previously demonstrated type B aortic dissection is not appreciated on this noncontrast exam. The thoracic aorta is otherwise of normal course and caliber. No significant associated calcific disease. Main pulmonary artery and its branches are normal in caliber. Mild coronary artery calcifications are present. The study is not optimized for evaluation of coronary arteries. The cardiac chambers are not enlarged. No evidence of pericardial effusion. UPPER ABDOMEN: The visualized subdiaphragmatic structures demonstrate no remarkable findings. CHEST WALL AND OSSEOUS STRUCTURES: There are no suspicious osseous lesions. Multilevel degenerative changes are present Procedure Note Eliezer Melendez MD - 01/26/2025 Interpreted By: Eliezer Melendez and Booth Cameron STUDY: CT CHEST WO IV CONTRAST; 01/26/2025 2:39 pm INDICATION: Signs/Symptoms:Acute hypoxemic respiratory failure. COMPARISON: CT ANGIO CHEST 01/22/2025 ACCESSION NUMBER(S): [id number] ORDERING CLINICIAN: ABENA SMALL TECHNIQUE: Helical data acquisition of the chest was obtained without IV contrast material. Images were reformatted in axial, coronal, and sagittal planes. FINDINGS: LUNGS AND AIRWAYS: The trachea and central airways are patent. No endobronchial lesion. Small bilateral pleural effusions with associated bibasilar compressive atelectasis/airspace consolidations with associated air bronchograms. Scattered calcified granulomas are visualized. Mild upper lung predominant emphysematous changes are again seen. MEDIASTINUM AND MALINI, LOWER NECK AND AXILLA: The visualized thyroid gland is within normal limits. No evidence of thoracic lymphadenopathy by CT criteria. Small hiatal hernia. HEART AND VESSELS: Previously demonstrated type B aortic dissection is not appreciated on this noncontrast exam. The thoracic aorta is otherwise of normal course and caliber. No significant associated calcific disease. Main pulmonary artery and its branches are normal in caliber. Mild coronary artery calcifications are present. The study is not optimized for evaluation of coronary arteries. The cardiac chambers are not enlarged. No evidence of pericardial effusion. UPPER ABDOMEN: The visualized subdiaphragmatic structures demonstrate no remarkable findings. CHEST WALL AND OSSEOUS STRUCTURES: There are no suspicious osseous lesions. Multilevel degenerative changes are present IMPRESSION: 1. Small bilateral pleural effusions and bibasilar airspace consolidations with associated air bronchograms, new from prior and favored to represent compressive atelectasis. Superimposed infection is not entirely excluded. 2. Small hiatal hernia. 3. Mild coronary artery calcifications. I personally reviewed the image(s)/study and interpretation by Filiberto Adkins MD (resident). MACRO: None Signed by: Eliezer Melendez 01/26/2025 4:50 PM Dictation workstation: [id number] Abena Small MD IMG CT PROCEDURES Final Result * Vascular US renal artery duplex complete (01/26/2025 11:45 AM EDT) BSA 2.22 m2 SYNGO Anatomical Region Laterality Modality Abdomen Echocardiography 01/26/2025 11:2 5 AM EDT Narrative 01/26/2025 1:41 PM EDT [place] [address] and Vascular Lab Report VASC US RENAL ARTERY DUPLEX COMPLETE Patient Name: RONEY MONTILLA Reading Physician: [id number] Hansen MD, OSMAR Study Date: 01/26/2025 Ordering Physician: [id number] SMALL MRN/PID: [id number] Technologist: Mt Villarreal RVT, RDMS Technologist 2: Date of /Age: 12 1970 / 54 years Gender: M Admission Status: Outpatient Location Performed: [facility] Diagnosis/ICD: Dissection of thoracic aorta, unspecified-I71.019 CPT Codes: 42706 Abdominal Visceral Renal CONCLUSIONS: Right Renal Artery: Technically difficult to visualize the abdominal aorta and the renal artery. However, the renal artery is noted to be patent at distal segment. Left Renal Artery: Technically difficult to visualize the renal artery. However, the renal artery is noted to be patent at the distal segment. Additional Findings: Technically difficult exam due to patient's body habitus, bowel gas and innability to sustain respiration. Imaging & Doppler Findings: Renal Artery Duplex Right Kidney: 11.0 cm Left Kidney: 11.2 cm Systolic Diastolic ARTERY Systolic Diastolic 119 cm/s 11 cm/s Distal 48 cm/s 8 cm/s 19 cm/s 3 cm/s Superior 18 cm/s 4 cm/s 17 cm/s 4 cm/s Inferior 10 cm/s 3 cm/s Right Left 0.8 Resistive Index 0.8 [id number] Hansen MD, RPVI Final Procedure Note Keiko Hansen MD - 01/26/2025 [place] [address] and Vascular Lab Report [facility] US RENAL ARTERY DUPLEX COMPLETE Patient Name: RONEY Morris Physician: [id number] Hansen MD,OSMAR Study Date: 01/26/2025 Ordering Physician: [id number] SMALL MRN/PID: [id number] Technologist: Mt Villarreal RVT, RDMS Technologist 2: Date of /Age: 12 1970 / 54 years Gender: M Admission Status: Outpatient Location Performed: [facility] Diagnosis/ICD: Dissection of thoracic aorta, 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 However, the renal artery is noted to be patent atdistal segment. Left Renal Artery: Technically difficult to visualize the renal artery.However, the renal artery is noted to be patent at the distal segment. Additional Findings: Technically difficult exam due to patient's body habitus, bowel gas and innability to sustain respiration. Imaging & Doppler Findings: Renal Artery Duplex Right Kidney: 11.0 cm LeftKidney: 11.2 cm Systolic Diastolic ARTERY SystolicDiastolic 119 cm/s 11 cm/s Distal 48 cm/s 8cm/s 19 cm/s 3 cm/s Superior 18 cm/s 4cm/s 17 cm/s 4 cm/s Inferior 10 cm/s 3cm/s Right Left 0.8 Resistive Index 0.8 [id number] Keiko Hansen MD, RPVI at1:41:18 PM Final Abena Small MD CV VASCULAR PROCEDURES Final R esult * (ABNORMAL) Iron and TIBC (01/26/2025 5:12 AM EDT) Iron 45 35 - 150 ug/dL LAB CHEMISTRY METHOD 01/26/2025 1:15 PM EDT [facility] UIBC 208 110 - 370 ug/dL LAB CHEMISTRY METHOD 01/26/2025 1:15 PM EDT [facility] TIBC 253 240 - 445 ug/dL LAB CHEMISTRY METHOD 01/26/2025 1:15 PM EDT [facility] % Saturation 18(L) 25 - 45 % LAB CHEMISTRY METHOD 01/26/2025 1:15 PM EDT [facility] Blood Venous blood specimen / Unknown Arterial Line / Unknown 01/26/2025 5:12 AM EDT 01/26/2025 6:06 AM EDT Abena Small MD LAB BLOOD ORDERABLES Final Res ult Performing Organization Address City/[facility]/ZIP Co de Phone Number [facility] [id number] [place] [phone] * HIV 1/2 Antigen/Antibody Screen with Reflex to Confirmation (01/26/2025 5:12 AM EDT) HIV 1/2 Antigen/Antibo dy Screen with Reflex to Confirmation Nonreactive Nonreactive LAB IMMUNOASSAY METHOD 01/26/2025 7:18 PM EDT [facility] Blood Venous blood specimen / Unknown Arterial Line / Unknown 01/26/2025 5:12 AM EDT 01/26/2025 6:06 AM EDT Narrative [facility] - 01/26/2025 7:18 PM EDT HIV Ag/Ab screen is performed using the Siemens TopSchoolllStartBull HIV Ag/Ab Combo assay which detects the presence of HIV p24 antigen as well as antibodies to HIV-1 (Group M and O) and HIV-2. No laboratory evidence of HIV infection. If acute HIV infection is suspected, consider testing for HIV RNA by PCR (viral load). Abena Small MD LAB BLOOD ORDERABLES Final Res ult Performing Organization Address [facility] Co de Phone Number [facility] [address] [place] [address] * (ABNORMAL) Transferrin (01/26/2025 5:12 AM EDT) Pathologist [facility] Transferrin 193(L) 200 - 360 mg/dL LAB CHEMISTRY METHOD 01/26/2025 1:15 PM EDT [facility] Blood Venous blood specimen / Unknown Arterial Line / Unknown 01/26/2025 5:12 AM EDT 01/26/2025 6:06 AM EDT Abena Small MD LAB BLOOD ORDERABLES Final Res ult Performing Organization Address City/[facility]/ZIP Co de Phone Number [facility] [id number] [place] [address] * (ABNORMAL) Ferritin (01/26/2025 5:12 AM EDT) Ferritin 541(H) 20 - 300 ng/mL LAB CHEMISTRY METHOD 01/26/2025 1:26 PM EDT [facility] Blood Venous blood specimen / Unknown Arterial Line / Unknown 01/26/2025 5:12 AM EDT 01/26/2025 6:06 AM EDT Abena Small MD LAB BLOOD ORDERABLES Final Res ult Performing Organization Address [facility] Co de Phone Number [facility] [address] [place] [address] * Vancomycin (01/25/2025 10:57 PM EDT) Only the most recent of2 resultswithin the time period is included. Vancomycin 12.0 5.0 - 20.0 ug/mL LAB CHEMISTRY METHOD 01/26/2025 12:16 AM EDT [facility] Blood Venous blood specimen / Unknown Arterial Line / Unknown 01/25/2025 10:57 PM EDT 01/25/2025 11:40 PM EDT Narrative [facility] - 01/26/2025 12:16 AM EDT Vancomycin levels can be monitored according to area under the curve (AUC) or concentration (ug/mL). The preferred monitoring strategy is determined by the patient's renal function and indication for therapy. For AUC monitoring, a random vancomycin level should be interpreted in the context of AUC rather than the concentration at a single point in time. For concentration monitoring, a trough concentration drawn immediately prior to the next dose is preferred. Therapeutic ranges using concentration-guided results: Peak (all ages): 30.0-40.0 ug/mL Trough (all ages): 10.0-20.0 ug/mL us Abena Small MD LAB BLOOD ORDERABLES Final Res ult Performing Organization Address [facility]/ZIP Co de Phone Number [facility] [id number] [place] [phone] * Streptococcus pneumoniae Antigen, Urine (01/25/2025 11:53 AM EDT) Streptococcus pneumoniae Ag, Urine Negative Negative 01/25/2025 2:52 PM EDT [facility] Urine Urine specimen / Unknown Non-blood Collection / Unknown 01/25/2025 11:53 AM EDT 01/25/2025 12:20 PM EDT us Abena Small MD LAB MICROBIOLOGY - GENERAL ORD ERABLES Final Result Performing Organization Address [facility] Co de Phone Number [facility] [address] [place] [address] * Legionella Antigen, Urine (01/25/2025 11:53 AM EDT) L. pneumophila Urine Ag Negative Negative 01/25/2025 2:52 PM EDT [facility] Urine Urine specimen / Unknown Non-blood Collection / Unknown 01/25/2025 11:53 AM EDT 01/25/2025 12:20 PM EDT us Abena Small MD LAB MICROBIOLOGY - GENERAL ORD ERABLES Final Result Performing Organization Address [facility] de Phone Number [facility] [address] [place] [address] * Electrocardiogram, 12-lead PRN ACS symptoms (01/25/2025 9:30 AM EDT) Only the most recent of3 resultswithin the time period is included. Ventricular Rate 51 BPM MUSE Atrial Rate 51 BPM MUSE DC Interval 150 ms MUSE QRS Duration 94 ms MUSE QT Interval 560 ms MUSE QTC Calculation(Baze tt) 516 ms MUSE P [place] 15 degrees MUSE R [place] -23 degrees MUSE T [place] -44 degrees MUSE QRS Count 9 beats MUSE Q Onset 215 ms MUSE P Onset 140 ms MUSE P Offset 187 ms MUSE T Offset 495 ms MUSE QTC [place] 531 ms MUSE 01/24/2025 2:26 PM EDT 02/01/2025 9:01 AM EDT Narrative MUSE - 02/01/2025 9:01 AM EDT Sinus bradycardia Possible Anterior infarct (cited on or before 23-JAN-2025) T wave abnormality, consider lateral ischemia Prolonged QT Abnormal ECG When compared with ECG of 23-JAN-2025 09:36, No significant change was found Confirmed by Jatin Smith ([id number]) on 02/01/2025 9:01:30 AM Procedure Note Jatin Smith MD - 02/01/2025 Sinus bradycardia Possible Anterior infarct (cited on or before 23-JAN-2025) T wave abnormality, consider lateral ischemia Prolonged QT Abnormal ECG When compared with ECG of 23-JAN-2025 09:36, No significant change was found Confirmed by Jatin Smith ([id number]) on 02/01/2025 9:01:30 AM us Judith Flores MD ECG ORDERABLES Fi nal Result MUSE * Folate (01/25/2025 2:55 AM EDT) Folate, Serum 13.9 >5.0 ng/mL LAB IMMUNOASSAY METHOD 01/28/2025 10:12 AM EDT [facility] Blood Venous blood specimen / Unknown Arterial Line / Unknown 01/25/2025 2:55 AM EDT 01/25/2025 3:29 AM EDT Narrative [facility] - 01/28/2025 10:12 AM EDT Low <3.4 Borderline 3.4-5.0 Normal >5.0 Patients receiving more than 5 mg/day of biotin may have interference in test results. A sample should be taken no sooner than eight hours after previous dose. Contact the testing laboratory for additional information. us Abnea Small MD LAB BLOOD ORDERABLES Final Res ult [facility] [address] [place] [address] * (ABNORMAL) Troponin I, High Sensitivity (01/24/2025 11:18 PM EDT) Only the most recent of4 resultswithin the time period is included. Troponin I, High Sensitivity (CMC) 189(HH) 0 - 53 ng/L LAB IMMUNOASSAY METHOD 01/25/2025 12:24 AM EDT [facility] Comment:Previous result veri fied on 01/24/2025 1707 on specimen/case 25UL- [id number] called with component [facility] for procedure Troponin I, High Sensitivity with value 228 ng/L. Blood Venous blood specimen / Unknown Arterial Line / Unknown 01/24/2025 11:18 PM EDT 01/24/2025 11:44 PM EDT Narrative [facility] - 01/25/2025 12:24 AM EDT Less than 99th percentile of normal range cutoff- Female and children under 18 years old <35 ng/L; Male <54 ng/L: Negative Repeat testing should be performed if clinically indicated. Female and children under 18 years old 35-120 ng/L; Male 54-120 ng/L: Consistent with possible cardiac damage and possible increased clinical risk. Serial measurements may help to assess extent of myocardial damage. >120 ng/L: Consistent with cardiac damage, increased clinical risk and myocardial infarction. Serial measurements may help assess extent of myocardial damage. NOTE: Children less than 1 year old may have higher baseline troponin levels and results should be interpreted in conjunction with the overall clinical context. NOTE: Troponin I testing is performed using a different testing methodology at [facility] than at other [facility] hospitals. Direct result comparisons should only be made within the same method. us Abena Small MD LAB BLOOD ORDERABLES Final Res ult [facility] [address] [facility] [id number] [place], [place] [phone] * TRANSTHORACIC ECHO (TTE) LIMITED (01/24/2025 4:22 PM EDT) LV EF 63 % SYNGO 01/24/2025 4:08 PM EDT Narrative SYNGO - 01/24/2025 4:33 PM EDT [facility], [address] [place] [address] and TRANSTHORACIC ECHOCARDIOGRAM REPORT Patient Name: RONEY MONTILLA Reading Physician: [id number] James Esqueda MD Study Date: 01/24/2025 Ordering Provider: [id number] ABENA SMALL MRN/PID: [id number] Fellow: Nurse: Date of /Age: 12 1970 / 54 Basket Weaver: Hero cespedes RDCS Gender assigned at M Additional Staff: : Height: 170.18 cm Admit Date: Weight: 99.34 kg Admission Status: Inpatient - STAT BSA / BMI: 2.10 m2 / 34.30 kg/m2 Blood Pressure: 122/60 mmHg Department Location: [facility] Study Type: TRANSTHORACIC ECHO (TTE) LIMITED Diagnosis/ICD: Hypoxemia-R09.02 Indication: limited echo with bubble study and re-eval of right heart strain requested by anais due to new oxygem requirements CPT Code: Echo Limited-95988 Patient History: Pertinent History: Dissecting aneurysm of thoracic aorta, Troy type B, AHRF. Study Detail: The following Echo studies were performed: 2D. Technically challenging study due to body habitus, patient lying in supine position, prominent lung artifact, the patient's lack of cooperation and poor acoustic windows. Agitated saline used as a contrast agent for intraseptal flow evaluation. PHYSICIAN INTERPRETATION: Left Ventricle: Left ventricular ejection fraction is normal, by visual estimate at 60-65%. There are no regional left ventricular wall motion abnormalities. The left ventricular cavity size was not assessed. Left ventricular diastolic filling was not assessed. Left Atrium: The left atrial size is normal. A bubble study using agitated saline was performed. Bubble study is negative. Right Ventricle: The right ventricle is normal in size. There is normal right ventricular global systolic function. Right Atrium: The right atrium is normal in size. Aortic Valve: The aortic valve was not assessed. Aortic valve regurgitation was not assessed. Mitral Valve: The mitral valve is normal in structure. Mitral valve regurgitation was not assessed. Tricuspid Valve: The tricuspid valve was not assessed. Tricuspid regurgitation was not assessed. Pulmonic Valve: The pulmonic valve was not assessed. Pulmonic valve regurgitation was not assessed. Pericardium: Pericardial effusion was not well visualized. Aorta: The aortic root was not assessed. Systemic Veins: The inferior vena cava was not assessed. In comparison to the previous echocardiogram(s): Compared with study dated 01/23/2025, the current study was a limited study for agitated saline, no obvious interatrial shunt was seen. CONCLUSIONS: 1. Left ventricular ejection fraction is normal, by visual estimate at 60-65%. 2. There is normal right ventricular global systolic function. 3. A bubble study using agitated saline was performed. Bubble study is negative. 4. Compared with study dated 01/23/2025, the current study was a limited study for agitated saline, no obvious interatrial shunt was seen. QUANTITATIVE DATA SUMMARY: LV SYSTOLIC FUNCTION: Normal Ranges: EF-Visual: 63 % LV EF Reported: 63 % [id number] James Esqueda MD Electronically signed on 01/24/2025 at 4:33:51 PM Final Procedure Note James Esqueda MD - 01/24/2025 [facility], [address] [place] [address] and TRANSTHORACIC ECHOCARDIOGRAM REPORT Patient Name: RONEY Alvarez ELADIA Morris Physician: [id number] Esqueda MD Study Date: 01/24/2025 Ordering Provider: [id number] SMALL MRN/PID: [id number] Fellow: Nurse: Date of /Age: 12 1970 / 54 Basket Weaver: Jasmin cespedes [facility] Gender assigned at M Additional Staff: : Height: 170.18 cm Admit Date: Weight: 99.34 kg Admission Status: Inpatient -STAT BSA / BMI: 2.10 m2 / 34.30 kg/m2 Blood Pressure: 122/60 mmHg Department Location: [facility] Study Type: TRANSTHORACIC ECHO (TTE) LIMITED Diagnosis/ICD: Hypoxemia-R09.02 Indication: limited echo with bubble study and re-eval of right heartstrain requested by anais due to new oxygem requirements CPT Code: Echo Limited-05078 Patient History: Pertinent History: Dissecting aneurysm of thoracic aorta, Troy type B,AHRF. Study Detail: The following Echo studies were performed: 2D. Technically challenging study due to body habitus, patient lying insupine position, prominent lung artifact, the patient's lack of cooperation and poor acoustic windows. Agitated saline usedas a contrast agent for intraseptal flow evaluation. PHYSICIAN INTERPRETATION: Left Ventricle: Left ventricular ejection fraction is normal, by visualestimate at 60-65%. There are no regional left ventricular wall motionabnormalities. The left ventricular cavity size was not assessed. Leftventricular diastolic filling was not assessed. Left Atrium: The left atrial size is normal. A bubble study using agitatedsaline was performed. Bubble study is negative. Right Ventricle: The right ventricle is normal in size. There is normalright ventricular global systolic function. Right Atrium: The right atrium is normal in size. Aortic Valve: The aortic valve was not assessed. Aortic valveregurgitation was not assessed. Mitral Valve: The mitral valve is normal in structure. Mitral valveregurgitation was not assessed. Tricuspid Valve: The tricuspid valve was not assessed. Tricuspidregurgitation was not assessed. Pulmonic Valve: The pulmonic valve was not assessed. Pulmonic valveregurgitation was not assessed. Pericardium: Pericardial effusion was not well visualized. Aorta: The aortic root was not assessed. Systemic Veins: The inferior vena cava was not assessed. In comparison to the previous echocardiogram(s): Compared with study date01/23/2025, the current study was a limited study for agitated saline, noobvious interatrial shunt was seen. CONCLUSIONS: 1. Left ventricular ejection fraction is normal, by visual estimate at60-65%. 2. There is normal right ventricular global systolic function. 3. A bubble study using agitated saline was performed. Bubble study isnegative. 4. Compared with study dated 01/23/2025, the current study was a limitedstudy for agitated saline, no obvious interatrial shunt was seen. QUANTITATIVE DATA SUMMARY: LV SYSTOLIC FUNCTION: Normal Ranges: EF-Visual: 63 % LV EF Reported: 63 % [id number] James Esqueda MD Electronically signed on 01/24/2025 at 4:33:51 PM Final us Abena Small MD CV ECHO PROCEDURES Final Resul t Performing Organization Address [facility] de Phone Number SYNGO * Blood Culture (01/24/2025 3:36 PM EDT) Only the most recent of2 resultswithin the time period is included. Blood Culture No growth at 4 days - FINAL REPORT AUTOMATED MICROBIAL DETECTION SYSTEM (VIRTUO) 01/28/2025 5:02 PM EDT [facility] Blood culture Venous blood specimen / Unknown Blood Culture / Unknown 01/24/2025 3:36 PM EDT 01/24/2025 4:54 PM EDT us Abena Small MD LAB MICROBIOLOGY - GENERAL ORD ERABLES Final Result Performing Organization Address [facility] de Phone Number [facility] [id number] [place] [address] [phone] * Sedimentation rate, automated (01/24/2025 3:30 PM EDT) [facility] Sedimentation Rate 13 0 - 20 mm/h LAB HEMATOLOGY METHOD 01/24/2025 4:33 PM EDT [facility] Blood Venous blood specimen / Unknown Arterial Line / Unknown 01/24/2025 3:30 PM EDT 01/24/2025 4:09 PM EDT us Abena Small MD LAB BLOOD ORDERABLES Final Res ult Performing Organization Address [facility] de Phone Number [facility] [id number] [place], [place] [phone] * Sars-CoV-2 PCR (01/24/2025 3:21 PM EDT) Pathologist [facility] Coronavirus 2019, PCR Not Detected Not Detected SIMPLEXA COVID-19 DIRECT ASSAY_[facility]_EUA 01/24/2025 6:20 PM EDT [facility] Swab Nasopharyngeal swab / Unknown Non-blood Collection / Unknown 01/24/2025 3:21 PM EDT 01/24/2025 4:10 PM EDT Narrative [facility] - 01/24/2025 6:20 PM EDT This assay is an FDA-cleared, in vitro diagnostic nucleic acid amplification test for the qualitative detection and differentiation of SARS CoV-2 from nasopharyngeal specimens collected from individuals with signs and symptoms of respiratory tract infections, and has been validated for use at [facility]. Negative results do not preclude COVID-19 infections and should not be used as the sole basis for diagnosis, treatment, or other management decisions. Testing for SARS CoV-2 is recommended only for patients who meet current clinical and/or epidemiological criteria defined by federal, state, or local public health directives. Abena Small MD LAB MOLECULAR DIAGNOSTICS KAROL KARISHMAGAUDENCIO Final Result Performing Organization Address [facility] Co de Phone Number [facility] [address] [place] [phone] * RSV PCR (01/24/2025 3:21 PM EDT) [facility] RSV PCR Not Detected Not Detected POLYMERASE CHAIN REACTION 01/24/2025 9:17 PM EDT [facility] Swab Nasopharyngeal swab / Unknown Non-blood Collection / Unknown 01/24/2025 3:21 PM EDT 01/24/2025 4:10 PM EDT Narrative [facility] - 01/24/2025 9:17 PM EDT This assay is an FDA-cleared, in vitro diagnostic nucleic acid amplification test for the detection of RSV from nasopharyngeal specimens, and has been validated for use at [facility]. Negative results do not preclude RSV infections, and should not be used as the sole basis for diagnosis, treatment, or other management decisions. If Influenza A/B and RSV PCR results are negative, testing for Parainfluenza virus, Adenovirus and Metapneumovirus is routinely performed for pediatric oncology and intensive care inpatients at [facility] [place], and is available on other patients by placing an add-on request. us Abena Small MD LAB MOLECULAR DIAGNOSTICS ORDYulissa RABGAUDENCIO Final Result Performing Organization Address [facility]/ZIP Co de Phone Number [facility] [address] [place] [phone] * MRSA Surveillance for Vancomycin De-escalation, PCR (01/24/2025 3:21 PM EDT) [facility] MRSA PCR Not Detected Not Detected X_PERT XPRESS SARS-COV2_ CEPHEID_EU A 01/24/2025 7:08 PM EDT [facility] Swab (Anterior Nares) Non-blood Collection / Unknown 01/24/2025 3:21 PM EDT 01/24/2025 4:10 PM EDT Narrative [facility] - 01/24/2025 7:08 PM EDT This assay is an FDA-approved in vitro diagnostic nucleic acid amplification test for the detection of methicillin-resistant Staphylococcus aureus (MRSA) DNA directly from nasal swabs in patients at risk for nasal colonization. MRSA NxG is intended to aid in the prevention and control of MRSA infections in healthcare settings. This assay is NOT intended to diagnose, guide, or monitor treatment for MRSA infections, or provide results of susceptibility to methicillin. A negative result does not preclude MRSA nasal colonization. Test performance has not been evaluated in patients less than two years of age. Abena Small MD LAB MICROBIOLOGY - GENERAL ORD ERABLES Final Result [facility] [id number] [place] [phone] * Influenza A, and B PCR (01/24/2025 3:21 PM EDT) [facility] Flu A Result Not Detected Not Detected POLYMERASE CHAIN REACTION 01/24/2025 9:17 PM EDT [facility] Flu B Result Not Detected Not Detected POLYMERASE CHAIN REACTION 01/24/2025 9:17 PM EDT [facility] Swab Nasopharyngeal swab / Unknown Non-blood Collection / Unknown 01/24/2025 3:21 PM EDT 01/24/2025 4:10 PM EDT Narrative [facility] - 01/24/2025 9:17 PM EDT This assay is an in vitro diagnostic multiplex nucleic acid amplification test for the detection and discrimination of Influenza A & B from nasopharyngeal specimens, and has been validated for use at [facility]. Negative results do not preclude Influenza A/B infections, and should not be used as the sole basis for diagnosis, treatment, or other management decisions. If Influenza A/B and RSV PCR results are negative, testing for Parainfluenza virus, Adenovirus and Metapneumovirus is routinely performed for [facility] [place] pediatric oncology and intensive care inpatients, and is available on other patients by placing an add-on request. Abena Small MD LAB MOLECULAR DIAGNOSTICS ORDE NATALYA Final Result Performing Organization Address [facility] Co de Phone Number [facility] [address] [place] [phone] * COOX PANEL, VENOUS (01/24/2025 3:12 PM EDT) Pathologist [facility] POCT Carboxyhemoglob in, Venous 3.6 % 01/24/2025 4:42 PM EDT [facility] Comment: Ref Values Non-Smokers 0.5-1.5% Smokers 0.5-10.0% POCT Methemoglobin, Venous 0.5 0.0 - 1.5 % 01/24/2025 4:42 PM EDT [facility] Blood Venous blood specimen / Unknown Arterial Line / Unknown 01/24/2025 3:12 PM EDT 01/24/2025 3:12 PM EDT Result [facility] Abena Small MD LAB BLOOD ORDERABLES Final Res ult Performing Organization Address [facility] Co de Phone Number [facility] [address] [place] [phone] * Vascular US lower extremity venous duplex bilateral (01/24/2025 8:40 AM EDT) Anatomical Region Laterality Modality Lower Extremities Echocardiograp hy 01/24/2025 8:09 AM EDT Narrative 01/25/2025 9:54 PM EDT [address] [address] and Vascular Lab Report [facility] US LOWER EXTREMITY VENOUS DUPLEX BILATERAL Patient Name: RONEY MONTILLA Reading Physician: [id number] Caro Christianson MD Study Date: 01/24/2025 Ordering Physician: [id number] ABENA SMALL MRN/PID: [id number] Technologist: Steve Delgado RVT Technologist 2: Date of /Age: 12 1970 / years Gender: M Admission Status: Inpatient Location Performed: [facility] Diagnosis/ICD: Localized (leg) edema-R60.0 CPT Codes: 75787 Peripheral venous duplex scan for DVT complete CONCLUSIONS: Right Lower Venous: No evidence of acute deep vein thrombus visualized in the right lower extremity. Additional Findings; Cystic Structure with measurements of 4.3 cm x 2.0 cm noted in popliteal fossa. Left Lower Venous: No evidence of acute deep vein thrombus visualized in the left lower extremity. Imaging & Doppler Findings: Right Compressible Thrombus Flow Distal External Iliac None Spontaneous/Phasic CFV Yes None Spontaneous/Phasic PFV Yes None FV Proximal Yes None Spontaneous/Phasic FV Mid Yes None FV Distal Yes None Popliteal Yes None Spontaneous/Phasic Peroneal Yes None PTV Yes None Left Compress Thrombus Flow Distal External Iliac None Spontaneous/Phasic CFV Yes None Spontaneous/Phasic PFV Yes None FV Proximal Yes None Spontaneous/Phasic FV Mid Yes None FV Distal Yes None Popliteal Yes None Spontaneous/Phasic Peroneal Yes None PTV Yes None [id number] Caro Christianson MD Final Procedure Note Caro Christianson MD - 01/25/2025 [place] [address] and Vascular Lab Report [facility] US LOWER EXTREMITY VENOUS DUPLEX BILATERAL Patient Name: RONEY MONTILLA Reading Physician: [id number] Christianson MD Study Date: 01/24/2025 Ordering Physician: [id number] SMALL MRN/PID: [id number] Technologist: Steve Saavedra Technologist 2: Date of /Age: 12 1970 / 54 years Gender: M Admission Status: Inpatient Location Performed: [facility] Diagnosis/ICD: Localized (leg) edema-R60.0 CPT Codes: 22334 Peripheral venous duplex scan for DVT complete CONCLUSIONS: Right Lower Venous: No evidence of acute deep vein thrombus visualized inthe right lower extremity. Additional Findings; Cystic Structure withmeasurements of 4.3 cm x 2.0 cm noted in popliteal fossa. Left Lower Venous: No evidence of acute deep vein thrombus visualized inthe left lower extremity. Imaging & Doppler Findings: Right Compressible Thrombus Flow Distal External Iliac None Spontaneous/Phasic CFV Yes None Spontaneous/Phasic PFV Yes None FV Proximal Yes None Spontaneous/Phasic FV Mid Yes None FV Distal Yes None Popliteal Yes None Spontaneous/Phasic Peroneal Yes None PTV Yes None Left Compress Thrombus Flow Distal External Iliac None Spontaneous/Phasic CFV Yes None Spontaneous/Phasic PFV Yes None FV Proximal Yes None Spontaneous/Phasic FV Mid Yes None FV Distal Yes None Popliteal Yes None Spontaneous/Phasic Peroneal Yes None PTV Yes None [id number] Caro Christianson MD Final Abena Small MD CV VASCULAR PROCEDURES Final R esult * Aldosterone/Renin Activity Ratio,Plasma (01/24/2025 4:50 AM EDT) Blood Arterial blood specimen / Unknown Arterial Line / Unknown 01/24/2025 4:50 AM EDT 01/24/2025 5:17 AM EDT Abena Small MD LAB BLOOD ORDERABLES Final Res ult [facility] ([employer]) [address] [place] [address] [phone] * Aldosterone/Renin Activity Ratio,Serum (01/24/2025 4:50 AM EDT) Aldosterone 52.0 ng/dL 01/27/2025 6:07 AM EDT [facility] ([facility]) Comment: INTERPRETIVE INFORMATION: Aldosterone, Serum Reference intervals for age 15 and older: Upright ......... 4.0 - 31.0 ng/dL Supine .......... Less than or equal to 16.0 ng/dL Unspecified ..... Less than or equal to 31.0 ng/dL Normal serum levels of aldosterone are dependent on the sodium intake and whether the patient is upright or supine. High sodium intake will tend to suppress serum aldosterone, whereas low sodium intake will elevate serum aldosterone. The reference intervals for serum aldosterone are based on normal sodium intake. Access complete set of age- and/or gender-specific reference intervals for this test in the [employer] Laboratory Test Directory ([employer]). Renin Activity 9.4 ng/mL/hr 01/27/2025 6:07 AM EDT [facility] ([facility]) Comment: INTERPRETIVE INFORMATION: Renin Activity Adult, Normal sodium diet: Supine ................. 0.2-1.6 ng/mL/hr Upright ................ 0.5-4.0 ng/mL/hr Children, Normal sodium diet, Supine: [place] (1-7 days) ..... 2.0-35.0 ng/mL/hr Cord blood ............. 4.0-32.0 ng/mL/hr 1-12 mos ............... 2.4-37.0 ng/mL/hr 13 mos-3 yrs ........... 1.7-11.2 ng/mL/hr 4-5 yrs ................ 1.0- 6.5 ng/mL/hr 6-10 yrs ............... 0.5- 5.9 ng/mL/hr 11-15 yrs .............. 0.5- 3.3 ng/mL/hr Children, normal sodium diet, Upright: 0-3 yrs ................ Not Available 4-5 yrs ................ Less than or equal to 15 ng/mL/hr 6-10 yrs ............... Less than or equal to 17 ng/mL/hr 11-15 yrs .............. Less than or equal to 16 ng/mL/hr Plasma renin activity measures enzyme ability to convert angiotensinogen to angiotensin I and is limited by the availability of angiotensinogen. Plasma renin activity is not an accurate indicator of enzyme activity when angiotensinogen is decreased. This test was developed and its performance characteristics determined by [facility]. It has not been cleared or approved by the [place] Food and Drug Administration. This test was performed in a CLIA certified laboratory and is intended for clinical purposes. Aldosterone/Renin Activity Calculation 5.5 <=25.0 ratio 01/27/2025 6:07 AM EDT [facility] [employer]) Comment: INTERPRETIVE INFORMATION: A/RA Ratio Calculation Aldosterone/Renin Activity Ratio: Less than or equal to 25 An Aldosterone/Renin Activity Ratio of greater than 25 is suggestive of hyperaldosteronism if the aldosterone concentration is greater than 15 ng/dL. Performed By: [facility] [address] [place] [address] Industrial Maintenance Technician: Anibal Neri MD, PhD CLIA Number: [id number] Blood Arterial blood specimen / Unknown Arterial Line / Unknown 01/24/2025 4:50 AM EDT 01/24/2025 5:17 AM EDT us Abena Small MD LAB BLOOD ORDERABLES Final Res ult [facility] [address] [place] [address] * (ABNORMAL) Metanephrines Plasma (01/24/2025 2:57 AM EDT) Normetanephrine 1.44(H) 0.00 - 0.89 nmol/L 01/29/2025 9:57 AM EDT [facility] ([facility]) Metanephrine 0.26 0.00 - 0.49 nmol/L 01/29/2025 9:57 AM EDT [facility] ([facility]) Metanephrines Interpretation See Note 01/29/2025 9:57 AM EDT [facility] ([facility]) Comment: INTERPRETIVE INFORMATION: Metanephrines, Plasma (Free) This test is useful in the detection of pheochromocytoma, a rare neuroendocrine tumor. The majority of patients with pheochromocytoma have a plasma normetanephrine concentration in excess of 2.2 nmol/L and/or a metanephrine concentration in excess of 1.1 nmol/L. Increased concentrations of these analytes serve as confirmation for diagnosis. Patients with essential hypertension and plasma concentrations of normetanephrine below 0.9 nmol/L and a metanephrine concentration below 0.5 nmol/L, can be excluded from further testing. If clinical suspicion remains, repeat testing or testing for metanephrines in a 24-hr. urine specimen should be considered. This test was developed and its performance characteristics determined by [facility]. It has not been cleared or approved by the [place] Food and Drug Administration. This test was performed in a CLIA certified laboratory and is intended for clinical purposes. Performed By: [facility] [address] [place] [id number] Industrial Maintenance Technician: Anibal Neri MD, PhD CLIA Number: [id number] Blood Venous blood specimen / Unknown Venipuncture / Unknown 01/24/2025 2:57 AM EDT 01/24/2025 3:54 AM EDT Abena Small MD LAB BLOOD ORDERABLES Final Res ult [facility] [employer]) [address] [place] [phone] * (ABNORMAL) C-reactive protein (01/24/2025 2:57 AM EDT) [facility] C-Reactive Protein 4.78(H) <1.00 mg/dL LAB CHEMISTRY METHOD 01/24/2025 4:45 PM EDT [facility] Blood Venous blood specimen / Unknown Venipuncture / Unknown 01/24/2025 2:57 AM EDT 01/24/2025 3:54 AM EDT us Abena Small MD LAB BLOOD ORDERABLES Final Res ult [facility] [address] [facility] [address] [place], [place] [phone] * Urinalysis with Reflex Microscopic (01/23/2025 9:29 PM EDT) Color, Urine Yellow Light-Yellow , Yellow, Dark-Yellow 01/23/2025 11:14 PM EDT [facility] Appearance, Urine Clear Clear 01/23/2025 11:14 PM EDT [facility] Specific [place], Urine 1.024 1.005 - 1.035 01/23/2025 11:14 PM EDT [facility] pH, Urine 5.5 5.0, 5.5, 6.0, 6.5, 7.0, 7.5, 8.0 01/23/2025 11:14 PM EDT [facility] Protein, Urine NEGATIVE NEGATIVE, 10 (TRACE), 20 (TRACE) mg/dL 01/23/2025 11:14 PM EDT [facility] Glucose, Urine Normal Normal mg/dL 01/24/20 11:14 PM EDT [facility] Blood, Urine NEGATIVE NEGATIVE mg/dL 01/23/2025 11:14 PM EDT [facility] Ketones, Urine NEGATIVE NEGATIVE mg/dL 01/23/2025 11:14 PM EDT [facility] Bilirubin, Urine NEGATIVE NEGATIVE mg/dL 01/23/2025 11:14 PM EDT [facility] Urobilinogen, Urine Normal Normal mg/dL 01/23/2025 11:14 PM EDT [facility] Nitrite, Urine NEGATIVE NEGATIVE 01/23/2025 11:14 PM EDT [facility] Leukocyte Esterase, Urine NEGATIVE NEGATIVE 01/23/2025 11:14 PM EDT [facility] Urine Urine specimen / Unknown Non-blood Collection / Unknown 01/23/2025 9:29 PM EDT 01/23/2025 10:37 PM EDT Abena Small MD LAB URINE ORDERABLES Final Res ult [facility] [id number] [place] [address] * TRANSTHORACIC ECHO (TTE) COMPLETE (01/23/2025 3:29 PM EDT) AV pk [place] 2.14 m/s SYNGO AV mn grad 9 mmHg SYNGO LVOT diam 2.00 cm SYNGO MV E/A ratio 1.13 SYNGO LA vol index A/L 30.6 ml/m2 SYNGO Tricuspid annular plane systolic excursion 1.8 cm SYNGO LV EF 68 % SYNGO RV free wall pk S' 16.90 cm/s SYNGO LVIDd 4.60 cm SYNGO Aortic Valve Area by Continuity of VTI 2.73 cm2 SYNGO Aortic Valve Area by Continuity of Peak Velocity 2.58 cm2 SYNGO AV pk grad 18 mmHg SYNGO LV A4C EF 69.7 SYNGO 01/23/2025 2:39 PM EDT Narrative SYNGO - 01/23/2025 3:55 PM EDT [facility], [address] [place] [address] and TRANSTHORACIC ECHOCARDIOGRAM REPORT Patient Name: RONEY Morris Physician: [id number] Francisco J Marcial MD Study Date: 01/23/2025 Ordering Provider: [id number] ABENA SMALL MRN/PID: [id number] Fellow: [id number] Wilmar Diaz MD Nurse: Date of /Age: 12 1970 Basket Weaver: Willow Rendon RDCS years Gender assigned at M Additional Staff: : Height: 170.18 cm Admit Date: 01/22/2025 Weight: 96.16 kg Admission Status: Inpatient - STAT BSA / BMI: 2.07 m2 / 33.20 kg/m2 Blood Pressure: 111/61 mmHg Department Location: [facility] Study Type: TRANSTHORACIC ECHO (TTE) COMPLETE Diagnosis/ICD: 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 Study Detail: The following Echo studies were performed: 2D, M-Mode, Doppler and color flow. PHYSICIAN INTERPRETATION: Left Ventricle: Left ventricular ejection fraction is normal, calculated by Moody's biplane at 68%. There are no regional left ventricular wall motion abnormalities. The left ventricular cavity size is normal. There is mildly increased septal and mildly increased posterior left ventricular wall thickness. There is left ventricular concentric remodeling. Spectral Doppler shows a normal pattern of left ventricular diastolic filling. Left Atrium: The left atrial size is normal. Right Ventricle: The right ventricle is normal in size. There is normal right ventricular global systolic function. Right Atrium: The right atrium is normal in size. Aortic Valve: The aortic valve is trileaflet. There are increased aortic valve velocities due to increased flow/dynamic ejection. The aortic valve dimensionless index is 0.87. There is no evidence of aortic valve regurgitation. The peak instantaneous gradient of the aortic valve is 18 mmHg. The mean gradient of the aortic valve is 9 mmHg. Mitral Valve: The mitral valve is normal in structure. There is trace mitral valve regurgitation. Tricuspid Valve: The tricuspid valve is structurally normal. There is trace to mild tricuspid regurgitation. Reported right ventricular systolic pressure may be underestimated due to incomplete or suboptimal Doppler envelope. Pulmonic Valve: The pulmonic valve is not well visualized. There is physiologic pulmonic valve regurgitation. Pericardium: Trivial pericardial effusion. Aorta: The aortic root is normal. There is upper limits of normal dilatation of the ascending aorta. The aortic arch and descending aorta are not well seen; consider CT scan. Systemic Veins: The inferior vena cava appears dilated, with IVC inspiratory collapse less than 50%. In comparison to the previous echocardiogram(s): Compared with study dated 01/22/2025, no significant change. CONCLUSIONS: 1. Left ventricular ejection fraction is normal, calculated by Moody's biplane at 68%. 2. There is normal right ventricular global systolic function. 3. The aortic arch and descending aorta are not well seen; consider CT scan. QUANTITATIVE DATA SUMMARY: 2D MEASUREMENTS: Normal Ranges: LAs: 4.80 cm (2.7-4.0cm) IVSd: 1.20 cm (0.6-1.1cm) LVPWd: 1.10 cm (0.6-1.1cm) LVIDd: 4.60 cm (3.9-5.9cm) LVIDs: 2.80 cm LV Mass Index: 93 g/m2 LVEDV Index: 54 ml/m2 LV % FS 39.1 % LEFT ATRIUM: Normal Ranges: LA Vol A4C: 67.4 ml (22+/-6mL/m2) LA Vol A2C: 57.6 ml LA Vol BP: 63.4 ml LA Vol Index A4C: 32.5ml/m2 LA Vol Index A2C: 27.8 ml/m2 LA Vol Index BP: 30.6 ml/m2 LA Area A4C: 22.0 cm2 LA Area A2C: 20.0 cm2 LA [place] A4C: 6.1 cm LA [place] A2C: 5.9 cm LA Volume Index: 28.0 ml/m2 LA Vol A4C: 61.0 ml LA Vol A2C: 56.0 ml LA Vol Index BSA: 28.2 ml/m2 RIGHT ATRIUM: Normal Ranges: RA Vol A4C: 43.9 ml (8.3-19.5ml) RA Vol Index A4C: 21.2 ml/m2 RA Area A4C: 17.0 cm2 RA [place] A4C: 5.6 cm M-MODE MEASUREMENTS: Normal Ranges: Ao Root: 2.60 cm (2.0-3.7cm) LAs: 4.80 cm (2.7-4.0cm) AORTA MEASUREMENTS: Normal Ranges: Asc Ao, d: 3.20 cm (2.1-3.4cm) LV SYSTOLIC FUNCTION: Normal Ranges: EF-A4C View: 70 % (>=55%) EF-A2C View: 65 % EF-Biplane: 68 % LV EF Reported: 68 % LV DIASTOLIC FUNCTION: Normal Ranges: MV Peak E: 0.96 m/s (0.7-1.2 m/s) MV Peak A: 0.85 m/s (0.42-0.7 m/s) E/A Ratio: 1.13 (1.0-2.2) MV e' 0.107 m/s (>8.0) MV lateral e' 0.11 m/s MV medial e' 0.10 m/s MV A Dur: 114.00 msec E/e' Ratio: 9.01 (<8.0) PulmV Sys Madison: 75.40 cm/s PulmV Valadez Madison: 59.00 cm/s PulmV S/D Madison: 1.30 PulmV A Revs [place]: 33.20 cm/s PulmV A Revs Dur: 174.00 msec MITRAL VALVE: Normal Ranges: MV DT: 185 msec (150-240msec) AORTIC VALVE: Normal Ranges: AoV Vmax: 2.14 m/s (<=1.7m/s) AoV Peak P.3 mmHg (<20mmHg) AoV Mean P.0 mmHg (1.7-11.5mmHg) LVOT Max [place]: 1.76 m/s (<=1.1m/s) AoV VTI: 35.60 cm (18-25cm) LVOT VTI: 30.90 cm LVOT Diameter: 2.00 cm (1.8-2.4cm) AoV Area, VTI: 2.73 cm2 (2.5-5.5cm2) AoV Area,Vmax: 2.58 cm2 (2.5-4.5cm2) AoV Dimensionless Index: 0.87 RIGHT VENTRICLE: RV Basal 3.70 cm RV Mid 2.20 cm RV Major 3.7 cm TAPSE: 18.0 mm RV s' 0.17 m/s TRICUSPID VALVE/RVSP: Normal Ranges: IVC Diam: 2.30 cm PULMONIC VALVE: Normal Ranges: PV Accel Time: 122 msec (>120ms) PV Max Madison: 1.1 m/s (0.6-0.9m/s) PV Max P.9 mmHg PULMONARY VEINS: PulmV A Revs Dur: 174.00 msec PulmV A Revs Madison: 33.20 cm/s PulmV Valadez Madison: 59.00 cm/s PulmV S/D Madison: 1.30 PulmV Sys Madison: 75.40 cm/s [id number] Francisco J Marcial MD Electronically signed on 01/23/2025 at 3:55:28 PM Final Procedure Note Francisco J Marcial MD - 01/23/2025 [facility], [address] [place] [address] and TRANSTHORACIC ECHOCARDIOGRAM REPORT Patient Name: RONEY TREVIZOBY Reading Physician: [id number] Matt MALONEY Study Date: 01/23/2025 Ordering Provider: [id number] SMALL MRN/PID: [id number] Fellow: [id number] Diaz MD Nurse: Date of /Age: 12 1970 / 54 Basket Weaver: Willowmonse GoodwinARMOND rubina Gender assigned at M Additional Staff: : Height: 170.18 cm Admit Date: 01/22/2025 Weight: 96.16 kg Admission Status: Inpatient -STAT BSA / BMI: 2.07 m2 / 33.20 kg/m2 Blood Pressure: 111/61 mmHg Department Location: [facility] Study Type: TRANSTHORACIC ECHO (TTE) COMPLETE Diagnosis/ICD: 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 Study Detail: The following Echo studies were performed: 2D, M-Mode,Doppler and color flow. PHYSICIAN INTERPRETATION: Left Ventricle: Left ventricular ejection fraction is normal, calculatedby Moody's biplane at 68%. There are no regional left ventricular wallmotion abnormalities. The left ventricular cavity size is normal. There ismildly increased septal and mildly increased posterior left ventricularwall thickness. There is left ventricular concentric remodeling. SpectralDoppler shows a normal pattern of left ventricular diastolic filling. Left Atrium: The left atrial size is normal. Right Ventricle: The right ventricle is normal in size. There is normalright ventricular global systolic function. Right Atrium: The right atrium is normal in size. Aortic Valve: The aortic valve is trileaflet. There are increased aorticvalve velocities due to increased flow/dynamic ejection. The aortic valvedimensionless index is 0.87. There is no evidence of aortic valveregurgitation. The peak instantaneous gradient of the aortic valve is 18mmHg. The mean gradient of the aortic valve is 9 mmHg. Mitral Valve: The mitral valve is normal in structure. There is tracemitral valve regurgitation. Tricuspid Valve: The tricuspid valve is structurally normal. There istrace to mild tricuspid regurgitation. Reported right ventricular systolicpressure may be underestimated due to incomplete or suboptimal Dopplerenvelope. Pulmonic Valve: The pulmonic valve is not well visualized. There isphysiologic pulmonic valve regurgitation. Pericardium: Trivial pericardial effusion. Aorta: The aortic root is normal. There is upper limits of normaldilatation of the ascending aorta. The aortic arch and descending aortaare not well seen; consider CT scan. Systemic Veins: The inferior vena cava appears dilated, with IVCinspiratory collapse less than 50%. In comparison to the previous echocardiogram(s): Compared with study date01/22/2025, no significant change. CONCLUSIONS: 1. Left ventricular ejection fraction is normal, calculated by Moody'sbiplane at 68%. 2. There is normal right ventricular global systolic function. 3. The aortic arch and descending aorta are not well seen; consider CTscan. QUANTITATIVE DATA SUMMARY: 2D MEASUREMENTS: Normal Ranges: LAs: 4.80 cm (2.7-4.0cm) IVSd: 1.20 cm (0.6-1.1cm) LVPWd: 1.10 cm (0.6-1.1cm) LVIDd: 4.60 cm (3.9-5.9cm) LVIDs: 2.80 cm LV Mass Index: 93 g/m2 LVEDV Index: 54 ml/m2 LV % FS 39.1 % LEFT ATRIUM: Normal Ranges: LA Vol A4C: 67.4 ml (22+/-6mL/m2) LA Vol A2C: 57.6 ml LA Vol BP: 63.4 ml LA Vol Index A4C: 32.5ml/m2 LA Vol Index A2C: 27.8 ml/m2 LA Vol Index BP: 30.6 ml/m2 LA Area A4C: 22.0 cm2 LA Area A2C: 20.0 cm2 LA [place] A4C: 6.1 cm LA [place] A2C: 5.9 cm LA Volume Index: 28.0 ml/m2 LA Vol A4C: 61.0 ml LA Vol A2C: 56.0 ml LA Vol Index BSA: 28.2 ml/m2 RIGHT ATRIUM: Normal Ranges: RA Vol A4C: 43.9 ml (8.3-19.5ml) RA Vol Index A4C: 21.2 ml/m2 RA Area A4C: 17.0 cm2 RA [place] A4C: 5.6 cm M-MODE MEASUREMENTS: Normal Ranges: Ao Root: 2.60 cm (2.0-3.7cm) LAs: 4.80 cm (2.7-4.0cm) AORTA MEASUREMENTS: Normal Ranges: Asc Ao, d: 3.20 cm (2.1-3.4cm) LV SYSTOLIC FUNCTION: Normal Ranges: EF-A4C View: 70 % (>=55%) EF-A2C View: 65 % EF-Biplane: 68 % LV EF Reported: 68 % LV DIASTOLIC FUNCTION: Normal Ranges: MV Peak E: 0.96 m/s (0.7-1.2 m/s) MV Peak A: 0.85 m/s (0.42-0.7 m/s) E/A Ratio: 1.13 (1.0-2.2) MV e' 0.107 m/s (>8.0) MV lateral e' 0.11 m/s MV medial e' 0.10 m/s MV A Dur: 114.00 msec E/e' Ratio: 9.01 (<8.0) PulmV Sys Madison: 75.40 cm/s PulmV Valadez Madison: 59.00 cm/s PulmV S/D Madison: 1.30 PulmV A Revs Madison: 33.20 cm/s PulmV A Revs Dur: 174.00 msec MITRAL VALVE: Normal Ranges: MV DT: 185 msec (150-240msec) AORTIC VALVE: Normal Ranges: AoV Vmax: 2.14 m/s (<=1.7m/s) AoV Peak P.3 mmHg (<20mmHg) AoV Mean P.0 mmHg (1.7-11.5mmHg) LVOT Max [place]: 1.76 m/s (<=1.1m/s) AoV VTI: 35.60 cm (18-25cm) LVOT VTI: 30.90 cm LVOT Diameter: 2.00 cm (1.8-2.4cm) AoV Area, VTI: 2.73 cm2 (2.5-5.5cm2) AoV Area,Vmax: 2.58 cm2 (2.5-4.5cm2) AoV Dimensionless Index: 0.87 RIGHT VENTRICLE: RV Basal 3.70 cm RV Mid 2.20 cm RV Major 3.7 cm TAPSE: 18.0 mm RV s' 0.17 m/s TRICUSPID VALVE/RVSP: Normal Ranges: IVC Diam: 2.30 cm PULMONIC VALVE: Normal Ranges: PV Accel Time: 122 msec (>120ms) PV Max [place]: 1.1 m/s (0.6-0.9m/s) PV Max P.9 mmHg PULMONARY VEINS: PulmV A Revs Dur: 174.00 msec PulmV A Revs Madison: 33.20 cm/s PulmV Valadez Madison: 59.00 cm/s PulmV S/D Madison: 1.30 PulmV Sys Madison: 75.40 cm/s [id number] Francisco J Marcial MD Electronically signed on 01/23/2025 at 3:55:28 PM Final us Abena Small MD CV ECHO PROCEDURES Final Resul t SYNGO * (ABNORMAL) Drug Screen, Urine With Reflex to Confirmation (01/23/2025 1:24 PM EDT) Pathologist [facility] Amphetamine Screen, Urine Presumptive Positive(A) Presumptive Negative LAB CHEMISTRY METHOD 4:03 PM EDT [facility] Comment: CUTOFF LEVEL: 500 NG/ML Cross-reactivity has been reported with high concentrations of the following drugs: buproprion, chloroquine, chlorpromazine, ephedrine, mephentermine, fenfluramine, phentermine, phenylpropanolamine, pseudoephedrine, and propranolol. Barbiturate Screen, Urine Presumptive Negative Presumptive Negative LAB CHEMISTRY METHOD 4:03 PM EDT [facility] Comment:CUTOFF LEVEL: 200 NG /ML Benzodiazepines Screen, Urine Presumptive Negative Presumptive Negative LAB CHEMISTRY METHOD 4:03 PM EDT [facility] Comment:CUTOFF LEVEL: 200 NG /ML Cannabinoid Screen, Urine Presumptive Negative Presumptive Negative LAB CHEMISTRY METHOD 4:03 PM EDT [facility] Comment:CUTOFF LEVEL: 50 NG/ ML Cocaine Metabolite Screen, Urine Presumptive Positive(A) Presumptive Negative LAB CHEMISTRY METHOD 4:03 PM EDT [facility] Comment:CUTOFF LEVEL: 150 NG /ML Fentanyl Screen, Urine Presumptive Positive(A) Presumptive Negative LAB CHEMISTRY METHOD 4:03 PM EDT [facility] Comment:CUTOFF LEVEL: 5 NG/M L Opiate Screen, Urine Presumptive Negative Presumptive Negative LAB CHEMISTRY METHOD 4:03 PM T [facility] Comment: CUTOFF LEVEL: 300 NG/ML The opiate screen does not detect fentanyl, meperidine, or tramadol. Oxycodone is not consistently detected (refer to Oxycodone Screen, Urine result). Oxycodone Screen, Urine Presumptive Negative Presumptive Negative LAB CHEMISTRY METHOD 4:03 PM [facility] Comment: CUTOFF LEVEL: 100 NG/ML This test will accurately detect both oxycodone and oxymorphone. PCP Screen, Urine Presumptive Negative Presumptive Negative LAB CHEMISTRY METHOD 4:03 PM [facility] Comment: CUTOFF LEVEL: 25 NG/ML Cross-reactivity has been reported with dextromethorphan. Methadone Screen, Urine Presumptive Negative Presumptive Negative LAB CHEMISTRY METHOD 4:03 PM [facility] Comment: CUTOFF LEVEL: 150 NG/ML The metabolite V-pdfiv-yhzamxgeuawome (LAAM) is not detected by this method in concentrations that would be found in the urine of patients on LAAM therapy. Urine Urine specimen / Unknown Non-blood Collection / Unknown 01/23/2025 1:24 PM EDT 01/23/2025 3:32 PM EDT [facility] - 01/23/2025 4:03 PM EDT Drug screen results are presumptive and should not be used to assess compliance with prescribed medication. Definitive confirmatory drug testing has been added to this sample for any positive screen result and will be reported separately. Toxicology screening results are reported qualitatively. The concentration must be greater than or equal to the cutoff to be reported as positive. The concentration at which the screening test can detect an individual drug or metabolite varies. The absence of expected drug(s) and/or drug metabolite(s) may indicate non-compliance, inappropriate timing of specimen collection relative to drug administration, poor drug absorption, diluted/adulterated urine, or limitations of testing. For medical purposes only; not valid for forensic use. Interpretive questions should be directed to the laboratory medical directors. Hasmukh Bustos MD LAB URINE ORDERABLES Final Result [facility] [address] [address] * OOB Internal Tracking (01/23/2025 1:24 PM EDT) Urine Urine specimen / Unknown Non-blood Collection / Unknown 01/23/2025 1:24 PM EDT 01/23/2025 3:32 PM EDT Hasmukh Bustos MD LAB URINE ORDERABLES Final Result Performing Organization Address City/[facility]/ZIP Co de Phone Number [facility] [address] [address] * (ABNORMAL) Fentanyl Confirmation, Urine (01/23/2025 1:24 PM EDT) Fentanyl 6.9(H) <2.5 ng/mL 01/27/2025 1:22 PM EDT [facility] Comment:Consistent with use of drug containing fentanyl, such as Duragesic. Norfentanyl 12.6(H) <2.5 ng/mL 01/27/2025 1:22 PM EDT [facility] Comment:Fentanyl metabolite; consistent with use of drug containing fentanyl, such as Duragesic. Urine Urine specimen / Unknown Non-blood Collection / Unknown 01/23/2025 1:24 PM EDT 01/23/2025 3:32 PM EDT Narrative [facility] - 01/27/2025 1:22 PM EDT Methodology: Quantitative Liquid Chromatography - Tandem Mass Spectrometry Identification of specific drug(s) taken by specimen donor is problematic due to common metabolites, some of which are prescription drugs themselves. The absence of expected drug(s) and/or drug metabolite(s) may indicate non-compliance,inappropriate timing of specimen collection relative to drug administration, poor drug absorption, diluted/adulterated urine, or limitations of testing. All drug analytes covered are in the non-glucuronidated (free) forms. The concentration value must be greater than or equal to the cutoff to be reported as positive. Interpretive questions should be directed to the laboratory. The performance characteristics of this test has been validated by the individual laboratory site where testing is performed. It has not been cleared or approved by the FDA. However the FDA has determined that such clearance or approval is not necessary. Our Laboratory is certified under the Clinical Laboratory Improvement Amendments of 1988(CLIA)as qualified to perform high complexity clinical laboratory testing. Hasmukh Bustos MD LAB URINE ORDERABLES Final Result [facility] [address] [facility] [id number] [place], [place] [id number] * Amphetamine Confirm, Urine (01/23/2025 1:24 PM EDT) Methamphetamine Quant, Ur <200 ng/mL 01/27/2025 1:44 AM EDT [facility] MDA, Urine <200 ng/mL 01/27/2025 1:44 AM EDT [facility] ([facility]) MDEA, Urine <200 ng/mL 01/27/2025 1:44 AM EDT [facility] ([facility]) Phentermine,Urine <200 ng/mL 025 1:44 AM EDT [facility] ([facility]) Comment: Performed By: [facility] [address] [place] [id number] Industrial Maintenance Technician: Anibal Neri MD, PhD CLIA Number: [id number] Amphetamines,Urine 1020 ng/mL 2024 1:44 AM EDT [facility] ([facility]) Comment: INTERPRETIVE INFORMATION: Amphetamines, Urine, Quantitative Methodology: Quantitative Liquid Chromatography-Tandem Mass Spectrometry Positive cutoff: 200 ng/mL unless specified below: Amphetamine 50 ng/mL For medical purposes only; not valid for forensic use. The absence of expected drug(s) and/or drug metabolite(s) may indicate non-compliance, inappropriate timing of specimen collection relative to drug administration, poor drug absorption, diluted/adulterated urine, or limitations of testing. The concentration value must be greater than or equal to the cutoff to be reported as positive. Interpretive questions should be directed to the laboratory. This test was developed and its performance characteristics determined by [facility]. It has not been cleared or approved by the [place] Food and Drug Administration. This test was performed in a CLIA certified laboratory and is intended for clinical purposes. MDMA, Urine <200 ng/mL 01/27/2025 1:44 AM EDT [facility] ([facility]) Urine Urine specimen / Unknown Non-blood Collection / Unknown 01/23/2025 1:24 PM EDT 01/23/2025 3:32 PM EDT Hasmukh Bustos MD LAB URINE ORDERABLES Final Result [facility] ([facility]) [address] [place] [address] * Urea Nitrogen, Urine Random (01/23/2025 1:24 PM EDT) Urea Nitrogen, Urine Random 670 mg/dL LAB CHEMISTRY METHOD 01/23/2025 7:25 PM EDT [facility] Creatinine, Urine Random 193.9 20.0 - 370.0 mg/dL LAB CHEMISTRY METHOD 01/23/2025 7:25 PM EDT [facility] Urea Nitrogen/Creat inine Ratio 3.5 Not establishe d. g/g creat LAB CHEMISTRY METHOD 01/23/2025 7:25 PM EDT [facility] Urine Urine specimen / Unknown Non-blood Collection / Unknown 01/23/2025 1:24 PM EDT 01/23/2025 3:32 PM EDT us Abena Small MD LAB URINE ORDERABLES Final Res ult [facility] [address] [place] [address] * Urine electrolytes (01/23/2025 1:24 PM EDT) Sodium, Urine Random 12 mmol/L LAB CHEMISTRY METHOD 01/23/2025 7:25 PM EDT [facility] Sodium/Creatini ne Ratio 6 Not established. mmol/g Creat LAB CHEMISTRY METHOD 01/23/2025 7:25 PM EDT [facility] Potassium, Urine Random 88 mmol/L LAB CHEMISTRY METHOD 01/23/2025 7:25 PM EDT [facility] Potassium/Creat inine Ratio 45 Not established mmol/g Creat LAB CHEMISTRY METHOD 01/23/2025 7:25 PM EDT [facility] Chloride, Urine Random <15 mmol/L LAB CHEMISTRY METHOD 01/23/2025 7:25 PM EDT [facility] Chloride/Creati nine Ratio 01/23/2025 7:25 PM EDT [facility] Comment:One or more analytes used in this calculation is outside of the analytical measurement range. Calculation cannot be performed. Creatinine, Urine Random 193.9 20.0 - 370.0 mg/dL LAB CHEMISTRY METHOD 01/23/2025 7:25 PM EDT [facility] Urine Urine specimen / Unknown Non-blood Collection / Unknown 01/23/2025 1:24 PM EDT 01/23/2025 3:32 PM EDT us Abena Small MD LAB URINE ORDERABLES Final Res ult [facility] [address] [place] [address] * Cocaine, Urine, Confirmation (01/23/2025 1:24 PM EDT) Benzoylecgonine, Urine >2000 ng/mL 01/31/2025 11:46 AM EDT [facility] ([facility]) Comment: INTERPRETIVE INFORMATION: Cocaine Metabolite, Urine, Quantitative Methodology: Quantitative Liquid Chromatography-Tandem Mass Spectrometry. Positive cutoff: 50 ng/mL For medical purposes only; not valid for forensic use. The concentration value must be greater than or equal to the cutoff to be reported as positive. Interpretive questions should be directed to the laboratory. This test was developed and its performance characteristics determined by [facility]. It has not been cleared or approved by the US Food and Drug Administration. This test was performed in a CLIA certified laboratory and is intended for clinical purposes. Performed By: [facility] [address] [place] [address] Industrial Maintenance Technician: Anibal Neri MD, PhD CLIA Number: [id number] Urine Urine specimen / Unknown Non-blood Collection / Unknown 01/23/2025 1:24 PM EDT 01/23/2025 3:32 PM EDT Hasmukh Bustos MD LAB URINE ORDERABLES Final Result [facility] ([facility]) [address] [place] [address] * Type and screen (01/23/2025 3:28 AM EDT) ABO TYPE O 01/23/2025 4:53 AM EDT [facility] Rh TYPE NEG 01/23/2025 4:53 AM EDT [facility] ANTIBODY SCREEN NEG 4:53 AM EDT [facility] Blood Arterial blood specimen / Unknown Arterial Line / Unknown 01/23/2025 3:28 AM EDT 01/23/2025 4:02 AM EDT Hasmukh Bustos MD LAB BLOOD BANK TEST ORDERA BLES Final Result [facility] [address] [place] [address] * (ABNORMAL) Hemoglobin A1c (01/23/2025 3:28 AM EDT) Hemoglobin A1C 5.8(H) See comment % 025 4:36 AM EDT [facility] Estimated Average Glucose 120 Not Established mg/dL 01/23/2025 4:36 AM EDT [facility] Blood Arterial blood specimen / Unknown Arterial Line / Unknown 01/23/2025 3:28 AM EDT 01/23/2025 4:07 AM EDT Narrative [facility] - 01/23/2025 4:36 AM EDT Diagnosis of Diabetes-Adults Non-Diabetic: < or = 5.6% Increased risk for developing diabetes: 5.7-6.4% Diagnostic of diabetes: > or = 6.5% Hasmukh Bustos MD LAB BLOOD ORDERABLES Final Result Performing Organization Address City/[facility]/ZIP Co de Phone Number [facility] [address] [address] * Alcohol (01/23/2025 3:28 AM EDT) Alcohol <10 <=10 mg/dL LAB CHEMISTRY METHOD 01/23/2025 4:45 AM EDT [facility] Comment:For medical use only . Blood Arterial blood specimen / Unknown Arterial Line / Unknown 01/23/2025 3:28 AM EDT 01/23/2025 4:07 AM EDT Hasmukh Bustos MD LAB BLOOD ORDERABLES Final Result Performing Organization Address [facility] Co de Phone Number [facility] [address] [address] * (ABNORMAL) Lipid panel (01/23/2025 3:28 AM EDT) Pathologist [facility] Cholesterol 196 0 - 199 mg/dL LAB CHEMISTRY METHOD 01/23/2025 4:45 AM EDT [facility] Comment: Age Desirable Borderline High High 0-19 Y 0 - 169 170 - 199 >/= 200 20-24 Y 0 - 189 190 - 224 >/= 225 >24 Y 0 - 199 200 - 239 >/= 240 All ranges are based on fasting samples. Specific therapeutic targets will vary based on patient-specific cardiac risk. Pediatric guidelines reference:Pediatrics 2011, 128(S5).Adult guidelines reference: NCEP ATPIII Guidelines,PEBBLES 2001, 258:2486-97 Venipuncture immediately after or during the administration of Metamizole may lead to falsely low results. Testing should be performed immediately prior to Metamizole dosing. HDL-Cholesterol 56.5 mg/dL LAB CHEMISTRY METHOD 01/23/2025 4:45 AM EDT [facility] Comment: Age Very Low Low Normal High 0-19 Y < 35 < 40 40-45 ---- 20-24 Y ---- < 40 >45 ---- >24 Y ---- < 40 40-60 >60 Cholesterol/HDL Ratio 3.5 LAB CHEMISTRY METHOD 01/23/2025 4:45 AM EDT [facility] Comment: Ref Values Desirable < 3.4 High Risk > 5.0 LDL Calculated 123(H) <=99 mg/dL LAB CHEMISTRY METHOD 01/23/2025 4:45 AM T [facility] Comment: Near Borderline AGE Desirable Optimal High High Very High 0-19 Y 0 - 109 --- 110-129 >/= 130 ---- 20-24 Y 0 - 119 --- 120-159 >/= 160 ---- >24 Y 0 - 99 100-129 130-159 160-189 >/=190 VLDL 17 0 - 40 mg/dL LAB CHEMISTRY METHOD 01/23/2025 4:45 AM EDT [facility] Triglycerides 83 0 - 149 mg/dL LAB CHEMISTRY METHOD 01/23/2025 4:45 AM T [facility] Comment: Age Desirable Borderline High Very High SEX:B mg/dL mg/dL mg/dL mg/dL <=14D 86-277 ---- ---- ---- 15D-365D 55-277 ---- ---- ---- 1Y-9Y 0-74 75-99 >=100 ---- 10Y-19Y 0-89 90-129 >=130 ---- 20Y-24Y 0-114 115-149 >=150 ---- >= 25Y 0-149 150-199 200-499 >=500 Venipuncture immediately after or during the administration of Metamizole may lead to falsely low results. Testing should be performed immediately prior to Metamizole dosing. Non HDL Cholesterol 140 0 - 149 mg/dL LAB CHEMISTRY METHOD 01/23/2025 4:45 AM [facility] Comment: Age Desirable Borderline High High Very High 0-19 Y 0 - 119 120 - 144 >/= 145 >/= 160 20-24 Y 0 - 149 150 - 189 >/= 190 ---- >24 Y 30 mg/dL above LDL Cholesterol goal Blood Arterial blood specimen / Unknown Arterial Line / Unknown 01/23/2025 3:28 AM EDT 01/23/2025 4:07 AM EDT Hasmukh Bustos MD LAB BLOOD ORDERABLES Final Result Performing Organization Address [facility] Co de Phone Number [facility] [address] [place] [address] * (ABNORMAL) POCT GLUCOSE (01/23/2025 12:26 AM EDT) POCT Glucose 168(H) 74 - 99 mg/dL 01/23/2025 12:28 AM EDT [facility] Blood Capillary blood specimen / Unknown 01/23/2025 12:26 AM EDT 01/23/2025 12:28 AM EDT Hasmukh Bustos MD LAB POINT OF CARE TEST DOCKED DEVICE UNSOLICITED RESULTS Final Result Performing Organization Address [facility] de Phone Number [facility] [address] [place] [address] * TRANSTHORACIC ECHO (TTE) LIMITED WITH COLOR (01/23/2025 12:03 AM EDT) Pathologist [facility] LV EF 63 % SYNGO 01/22/2025 11:4 8 PM EDT Narrative [facility] - 01/23/2025 12:29 PM EDT [facility], [address] [place] [address] and TRANSTHORACIC ECHOCARDIOGRAM REPORT Patient Name: RONEY Morris Physician: [id number] Natty Brunner MD Study Date: 01/22/2025 Ordering Provider: [id number] HASMUKH BUSTOS MRN/PID: [id number] Fellow: Nurse: Date of /Age: 11 1970 / 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 PHYSICIAN INTERPRETATION: Left Ventricle: Left ventricular ejection fraction is normal, by visual estimate at 60-65%. There are no regional left ventricular wall motion abnormalities. The left ventricular cavity size was not assessed. Left ventricular diastolic filling was not assessed. Left Atrium: The left atrium is enlarged. Right Ventricle: The right ventricle is normal in size. There is normal right ventricular global systolic function. Right Atrium: The right atrium is normal in size. Aortic Valve: The aortic valve was not well visualized. Aortic valve regurgitation was not assessed. Mitral Valve: The mitral valve is normal in structure. There is no evidence of mitral valve regurgitation. Tricuspid Valve: The tricuspid valve was not well visualized. Tricuspid regurgitation was not assessed. Pulmonic Valve: The pulmonic valve is not well visualized. Pulmonic valve regurgitation was not assessed. Pericardium: There is no pericardial effusion noted. Aorta: The aortic root is normal. The ascending aorta was not well visualized. The aortic arch was not well visualized. Systemic Veins: The inferior vena cava was not assessed. In comparison to the previous echocardiogram(s): There are no prior studies on this patient for comparison purposes. CONCLUSIONS: 1. Poorly visualized anatomical structures due to suboptimal image quality. 2. Left ventricular ejection fraction is normal, by visual estimate at 60-65%. 3. There is normal right ventricular global systolic function. 4. The left atrium is enlarged. QUANTITATIVE DATA SUMMARY: LV SYSTOLIC FUNCTION: Normal Ranges: EF-Visual: 63 % LV EF Reported: 63 % [id number] Natty Brunner MD Electronically signed on 01/23/2025 at 12:29:38 PM Final Procedure Note Natty Brunner MD - 01/23/2025 [facility], [address] [place] [address] and TRANSTHORACIC ECHOCARDIOGRAM REPORT Patient Name: RONEY TREVIZOBY Reading Physician: [id number] Brunner MD Study Date: 01/22/2025 Ordering Provider: [id number] SHONA BUSTOS MRN/PID: [id number] Fellow: Nurse: Date of /Age: 12 1970 / 54 Basket Weaver: Fellow Exam years Gender assigned at M Additional Staff: : Height: Admit Date: 01/22/2025 Weight: Admission Status: Inpatient - Routine BSA / BMI: m2 / kg/m2 Study Type: TRANSTHORACIC ECHO (TTE) LIMITED Diagnosis/ICD: 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 PHYSICIAN INTERPRETATION: Left Ventricle: Left ventricular ejection fraction is normal, by visualestimate at 60-65%. There are no regional left ventricular wall motionabnormalities. The left ventricular cavity size was not assessed. Leftventricular diastolic filling was not assessed. Left Atrium: The left atrium is enlarged. Right Ventricle: The right ventricle is normal in size. There is normalright ventricular global systolic function. Right Atrium: The right atrium is normal in size. Aortic Valve: The aortic valve was not well visualized. Aortic valveregurgitation was not assessed. Mitral Valve: The mitral valve is normal in structure. There is noevidence of mitral valve regurgitation. Tricuspid Valve: The tricuspid valve was not well visualized. Tricuspidregurgitation was not assessed. Pulmonic Valve: The pulmonic valve is not well visualized. Pulmonic valveregurgitation was not assessed. Pericardium: There is no pericardial effusion noted. Aorta: The aortic root is normal. The ascending aorta was not wellvisualized. The aortic arch was not well visualized. Systemic Veins: The inferior vena cava was not assessed. In comparison to the previous echocardiogram(s): There are no priorstudies on this patient for comparison purposes. CONCLUSIONS: 1. Poorly visualized anatomical structures due to suboptimal imagequality. 2. Left ventricular ejection fraction is normal, by visual estimate at60-65%. 3. There is normal right ventricular global systolic function. 4. The left atrium is enlarged. QUANTITATIVE DATA SUMMARY: LV SYSTOLIC FUNCTION: Normal Ranges: EF-Visual: 63 % LV EF Reported: 63 % [id number] Natty Brunner MD Electronically signed on 01/23/2025 at 12:29:38 PM Final us Hasmukh Bustos MD CV ECHO PROCEDURES Final R esult SYNGO * DC ARTL CATHJ/CANNULJ MNTR/TRANSFUSION SPX PRQ (01/22/2025 11:13 PM EDT) Narrative Hasmukh Bustos MD - 01/22/2025 11:13 PM EDT Javi Gar MD 01/22/2025 11:13 PM Arterial Line Insertion Date/Time: 01/22/2025 11:13 PM Performed by: Javi Gar MD Authorized by: Hasmukh Bustos MD Consent: Consent obtained: Written Consent given by: Patient Risks, benefits, and alternatives were discussed: yes Risks discussed: Bleeding, infection, pain and ischemia [place] protocol: Procedure explained and questions answered to patient or proxy's satisfaction: yes Relevant documents present and verified: yes Test results available: yes Imaging studies available: yes Required blood products, implants, devices, and special equipment available: yes Site/side marked: yes Immediately prior to procedure, a time out was called: yes Patient identity confirmed: Verbally with patient, arm band and provided demographic data Indications: Indications: hemodynamic monitoring Pre-procedure details: Skin preparation: Chlorhexidine Preparation: Patient was prepped and draped in sterile fashion Sedation: Sedation type: None Anesthesia: Anesthesia method: Local infiltration Local anesthetic: Lidocaine 1% w/o epi Procedure details: Location: L radial Placement technique: Seldinger Number of attempts: 1 Transducer: waveform confirmed Post-procedure details: Post-procedure: Sterile dressing applied and sutured Procedure completion: Tolerated well, no immediate complications us Hasmukh Bustos MD IV THERAPY ORDERABLES Carla l Result * VERIFY ABO/Rh Group Test (01/22/2025 9:05 PM EDT) ABO TYPE O 01/22/2025 9:5 0 PM EDT [facility] Rh TYPE NEG 01/22/2025 9:5 0 PM EDT [facility] Blood Venous blood specimen / Unknown Venipuncture / Unknown 01/22/2025 9:05 PM EDT 01/22/2025 9:29 PM EDT us Hasmukh Bustos MD LAB BLOOD BANK TEST ORDERA BLES Final Result Performing Organization Address City/[facility]/ZIP Co de Phone Number [facility] [address] [place] [id number] * Protime-INR (01/22/2025 9:05 PM EDT) Pathologist [facility] Protime 12.0 9.8 - 12.4 seconds LAB COAGULATION METHOD 01/22/2025 9:57 PM EDT [facility] INR 1.1 0.9 - 1.1 LAB COAGULATION METHOD 01/22/2025 9:57 PM EDT [facility] Blood Venous blood specimen / Unknown Venipuncture / Unknown 01/22/2025 9:05 PM EDT 01/22/2025 9:38 PM EDT Hasmukh Bustos MD LAB BLOOD ORDERABLES Final Result Performing Organization Address [facility]/ZIP Co de Phone Number [facility] [address] [address] * (ABNORMAL) Comprehensive metabolic panel (01/22/2025 9:05 PM EDT) Pathologist [facility] Glucose 151(H) 74 - 99 mg/dL LAB CHEMISTRY METHOD 01/22/2025 10:12 PM EDT [facility] Sodium 137 136 - 145 mmol/L LAB CHEMISTRY METHOD 01/22/2025 10:12 PM EDT [facility] Potassium 3.1(L) 3.5 - 5.3 mmol/L LAB CHEMISTRY METHOD 01/22/2025 10:12 PM EDT [facility] Chloride 108(H) 98 - 107 mmol/L LAB CHEMISTRY METHOD 01/22/2025 10:12 PM EDT [facility] Bicarbonate 20(L) 21 - 32 mmol/L LAB CHEMISTRY METHOD 01/22/2025 10:12 PM EDT [facility] Anion Gap 12 10 - 20 mmol/L LAB CHEMISTRY METHOD 01/22/2025 10:12 PM EDT [facility] Urea Nitrogen 16 6 - 23 mg/dL LAB CHEMISTRY METHOD 01/22/2025 10:12 PM EDT [facility] Creatinine 0.94 0.50 - 1.30 mg/dL LAB CHEMISTRY METHOD 01/22/2025 10:12 PM EDT [facility] eGFR >90 >60 mL/min/1. 73m*2 LAB CHEMISTRY METHOD 01/22/2025 10:12 PM EDT [facility] Comment: Calculations of estimated GFR are performed using the 2020 CKD-EPI Study Refit equation without the race variable for the IDMS-Traceable creatinine methods. https://jasn.asnjournals.org/content/early//ASN.8659000553 Calcium 7.0(L) 8.6 - 10.6 mg/dL LAB CHEMISTRY METHOD 01/22/2025 10:12 PM EDT [facility] Albumin 3.4 3.4 - 5.0 g/dL LAB CHEMISTRY METHOD 01/22/2025 10:12 PM EDT [facility] Alkaline Phosphatase 71 33 - 120 U/L LAB CHEMISTRY METHOD 01/22/2025 10:12 PM EDT [facility] Total Protein 5.4(L) 6.4 - 8.2 g/dL LAB CHEMISTRY METHOD 01/22/2025 10:12 PM EDT [facility] AST 20 9 - 39 U/L LAB CHEMISTRY METHOD 01/22/2025 10:12 PM EDT [facility] Bilirubin, Total 0.5 0.0 - 1.2 mg/dL LAB CHEMISTRY METHOD 01/22/2025 10:12 PM EDT [facility] ALT 20 10 - 52 U/L LAB CHEMISTRY METHOD 01/22/2025 10:12 PM EDT [facility] Comment:Patients treated wit h Sulfasalazine may generate falsely decreased results for ALT. Blood Venous blood specimen / Unknown Venipuncture / Unknown 01/22/2025 9:05 PM EDT 01/22/2025 9:38 PM EDT us Hasmukh Bustos MD LAB BLOOD ORDERABLES Final Result [facility] [id number] [facility] [address] [place], [place] [id number] from Last 3 Months Insurance MEDICAID MEDICAID Advance Directives For more information, please contact: [phone] (Available ) * Full Code (Latest Code Status on File) Date Activated Date Inactivated Comments 01/22/2025 8:55 PM Question Answer Comments Plan of Care: Code Status Discussion Completed Decision Maker: Patient
--- OUTSIDE RECORDS SUMMARY | 2025-03-29 12:49 | XMS_ITS | Encounter Summary ---
Author Organization [facility] Address [address] [place] [address] Phone Care Team Providers Care Mass Communications Instructor Name Role Phone Unavailable Primary Care Provider Unavailabl e Encounter Details Date Type Department Care Team (Latest Contact Info) Description 03/28/2025 Travel Social History Tobacco Use Types Packs/Day Years Used Date Smoking Tobacco: Former Cigarettes 1 35.4 S tarted: 1989 Smokeless Tobacco: Former Alcohol Use Standard Drinks/Week Comments Yes 1 (1 standard drink = 0.6 oz pur e alcohol) [facility] Utilities Answer Date Recorded In the past 12 months has e [employer], gas, oil, or water [employer] threatened to shut off services in your [...] any time in the past 12 m [facility], were you homeless or living in a detention (including now)? No 01/23/2025 Sex and Gender [...] PM EDT documented as of this encounter Functional Status * Over the [...] M A documented as of this encounter Plan of Treatment Upcoming Encounters Date Type Department Care Team (Late st Contact Info) Description 04/07/2025 10:00 AM EDT Office Visit [facility] [place] [address] [place] [phone] Jamel Asif [place] PhD [id number] Department [place] [address] 04/13/2025 8:00 AM EDT Appointment [facility] [address] [place] [address] documented as of this encounter Visit Diagnoses Not on filedocumented in this encounter Additional Health Concerns Assessment Noted Time A fall risk assessment has been complete d for the patient 03/28/2025 2:47 PM EDT documented as of this encounter
--- NOTE | 2025-03-29 12:53 | XR_ITS ---
[facility] [place] [id number] Patient Name: JANA MONTILLA MRN: [id number] date: 1970 Sex: M Assigned Patient Location: ER Current Patient Location: ED.MAIN Accession/Order Number: [id number] Exam Date: 03/29/2025 20:04 Report Date: 03/29/2025 20:06 At the request of: ANTONIO COVINGTON MD Procedure: XR chest 1V Plain film chest Single view HISTORY: Acute dizziness today COMPARISON: None FINDINGS: SUPPORT DEVICES: None POSTSURGICAL CHANGES: None HEART: Borderline cardiomegaly. PULMONARY MALINI: Mild hilar prominence. MEDIASTINUM: Unremarkable LUNGS AND PLEURA: No acute lung process, pleural effusion or pneumothorax identified. Minor basilar interstitial changes. Minor basilar interstitial changes. BONY STRUCTURES: Intact ADDITIONAL FINDINGS None XR/XR chest 1V IMPRESSION: Borderline cardiomegaly with mild hilar prominence. Minor basilar interstitial changes. Impression dictated by: Raffi Troncoso M.D. 03/29/2025 8:06 PM Dictation [facility] Electronically authenticated by: [id number] Y Date: 03/29/2025 20:06
--- NOTE | 2025-03-29 12:53 | ECG_ITS ---
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 Measurements Intervals [place] Rate: 54 P: 58 IA: 156 QRS: -54 QRSD: 90 T: 9 QT: 438 QTc: 423 Interpretive Statements 1100 Sinus rhythm 3114 Cannot rule out anterior myocardial infarction, age undetermined 7200 Abnormal left axis deviation 8102 Low QRS voltage in chest leads 9150 abnormal ECG No previous ECG available for comparison Electronically Signed On 03-29-2025 17:29:01 EDT by LADONNA LINDO M.D.
--- NOTE | 2025-03-29 12:53 | ED.GENADUL1 ---
HPI HPI - General Adult General Chief complaint: Dizziness Stated complaint: DIZZINESS Time Seen by Provider: 03/29/25 12:38 Source: patient Mode of arrival: Wheelchair Limitations: no limitations History of Present Illness HPI narrative: 54-year-old male presents to the emergency department for dizziness. This started about an hour ago. 1-1/2 hours ago he took his medications, 3 blood pressure medicines and 30 minutes later he became dizzy and now he is feeling improved. No syncope or palpitations or chest pain or abdominal pain or back pain. 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 Yesterday he saw his physicians there who ordered a lowering of his blood pressure medication because it has been running too low. He has not picked up the new doses from the pharmacy yet and took his old doses of these medications today. Related Data Home Medications ?Medication ?Instructions ?Recorded ?Confirmed amlodipine 10 mg 03/29/25 aspirin 81 mg capsule 81 mg PO DAILY 03/29/25 03/29/25 atorvastatin 40 mg tablet (Lipitor) 40 mg PO DAILY 03/29/25 03/29/25 carvedilol 37.5 mg BID 03/29/25 ferrous sulfate 325 mg (65 mg 325 mg PO DAILY 03/29/25 03/29/25 iron) tablet (Feosol) isosorbide mononitrate 120 mg 120 mg PO 03/29/25 tablet,extended release 24 hr losartan 03/29/25 losartan 100 mg tablet mg 03/29/25 thiamine HCl (vitamin B1) 100 mg 100 mg PO DAILY 03/29/25 03/29/25 capsule Allergies Allergy/AdvReac Type Severity Reaction Status Date / Time No Known Drug Allergies Allergy Verified 03/29/25 12:41 Review of Systems ROS Narrative A ten point review of systems is negative except as noted above. PFSH PFSH Social History Little interest or pleasure in doing things: not at all Feeling down, depressed, or hopeless: not at all Exam Narrative Exam Narrative: Nurses note and vital signs reviewed and patient is not hypoxic. General: The patient appears in no apparent distress. Patient is resting comfortably on cart. Skin: Warm, dry, no pallor noted. There is no rash noted. Head: Normocephalic, atraumatic Eye: Normal conjunctiva, no drainage Ears, Nose, Mouth, and Throat: oral mucosa is moist. Nares patent. Cardiovascular: Regular Rate and Rhythm Respiratory: Patient is in no distress, no accessory muscle use, lungs are clear to auscultation, no wheezing, rales or rhonchi Back: non-tender GI: no tenderness to palpation, no masses appreciated. No rebound, guarding, or rigidity noted. Musculoskeletal: The patient has no evidence of calf tenderness, no pitting edema, symmetrical pulses noted bilaterally Neurological: A&O, normal speech Psychiatric: Cooperative Constitutional Vital Signs, click to edit/add: Last Vital Signs Temp 98.1 F 03/29/25 12:42 Pulse 60 03/29/25 13:47 Resp 17 03/29/25 13:47 BP 108/66 03/29/25 13:47 Pulse Ox 94 L 03/29/25 13:40 O2 Del Method Room Air 03/29/25 12:42 Course Vital Signs Vital signs: Vital Signs Pulse Oximetry 97 03/29/25 12:41 Temperature 98.1 F 03/29/25 12:42 Pulse Rate 60 03/29/25 13:47 Respiratory Rate 17 03/29/25 13:47 Blood Pressure 108/66 03/29/25 13:47 Pulse Oximetry 94 L 03/29/25 13:40 Oxygen Delivery Method Room Air 03/29/25 12:42 Medical Decision Making MDM Narrative Medical decision making narrative: His workup is negative. Renal function and hemoglobin are normal and troponin is negative. He is asymptomatic now including with ambulation. He had taken the higher dose of his blood pressure medication this morning and had transient hypotension. He feels back to normal now and will be discharged home and will sheepskin pickler the new prescriptions for the lower dose of his blood pressure medications. Treatment diagnosis and follow-up were discussed with the patient. Differential Diagnosis Differential Diagnosis: Hypertension, anemia, acute kidney Lab Data Lab results reviewed: Yes I reviewed the patient's lab results Labs: Lab Results 03/29/25 Range/Units 12:50 WBC 4.5 (4.0-11.0) 10^3/uL RBC 4.29 L (4.70-6.10) 10^6/uL Hgb 13.0 L (14.0-18.0) g/dL Hct 37.2 L (42.0-54.0) % MCV 86.7 (80.0-94.0) fL MCH 30.3 (25.9-34.0) pg MCHC 34.9 (29.9-35.2) g/dL RDW 12.5 (11.0-15.0) % Plt Count 244 (150-450) 10^3/uL MPV 8.5 L (9.5-13.5) fL Neut % (Auto) 58.0 (43.0-75.0) % Lymph % (Auto) 25.5 (20.5-60.0) % [place] % (Auto) 11.0 (1.7-12.0) % Eos % (Auto) 3.1 (0.9-7.0) % Baso % (Auto) 2.0 (0.2-2.0) % Neut # (Auto) 2.6 (1.4-6.5) 10^3/uL Lymph # (Auto) 1.1 L (1.2-3.8) 10^3/uL [place] # (Auto) 0.5 (0.3-0.8) 10^3/uL Eos # (Auto) 0.1 (0.0-0.7) 10^3/uL Baso # (Auto) 0.1 (0.0-0.1) 10^3/uL Abs Immat Gran (auto) 0.02 (0.00-0.03) 10^3/uL Imm/Tot Granulo (auto) 0.4 (0.0-0.5) % Sodium 141 (136-145) mmol/L Potassium 4.1 (3.5-5.1) mmol/L Chloride 106 (98-107) mmol/L Carbon Dioxide 22.9 (21.0-32.0) mmol/L Anion Gap 16.2 BUN 18.0 (7.0-18.0) mg/dL Creatinine 1.24 (0.70-1.30) mg/dL Est GFR ( Amer) >60 (>=60 mL/min/1.73m^2) Est GFR (Non-Af Amer) >60 (>=60 mL/min/1.73m^2) BUN/Creatinine Ratio 14.5 Glucose 143 H (74-106) mg/dL Calcium 8.8 (8.5-10.1) mg/dL Troponin I High Sens 4.9 (4.0-76.1) pg/mL ECG Data Attestation: I personally reviewed and interpreted this ECG as follows: (EKG on my interpretation shows sinus rhythm with rate of 54 and no acute change) Discharge Plan Discharge Chief Complaint: Dizziness Clinical Impression: Adverse reaction to drug Patient Disposition: Home, Self-Care Time of Disposition Decision: 14:02 Condition: Good Mode of Transportation: Private Vehicle Prescriptions / Home Meds: No Action amlodipine 10 mg carvedilol 37.5 mg BID losartan atorvastatin [Lipitor] 40 mg tablet 40 mg PO DAILY ferrous sulfate [Feosol] 325 mg (65 mg iron) tablet 325 mg PO DAILY isosorbide mononitrate 120 mg tablet extended release 24 hr 120 mg PO aspirin 81 mg capsule 81 mg PO DAILY losartan 100 mg tablet thiamine HCl (vitamin B1) 100 mg capsule 100 mg PO DAILY Print Language: Micronesian Instructions: Hypotension (ED) Additional Instructions: safety supervisor from your pharmacy your blood pressure medications at the lower dose. Referrals: Physician,Non-Staff, MD [Primary Care Provider] - 1 week
[2025-03-29 13:04] LABS: Basophils Absolute Auto 0.1 10^3/uL (0.0-0.1); Eosinophils Absolute Auto 0.1 10^3/uL (0.0-0.7); Eosinophils Percent Auto 3.1 % (0.9-7.0); Hematocrit 37.2 % (42.0-54.0); Immature Granulocytes Abs Auto 0.02 10^3/uL (0.00-0.03); Immature Granulocytes Pct Auto 0.4 % (0.0-0.5); Lymphocytes Absolute Auto 1.1 10^3/uL (1.2-3.8); Lymphocytes Percent Auto 25.5 % (20.5-60.0); Mean Corpuscular HGB Conc 34.9 g/dL (29.9-35.2); Mean Corpuscular Hemoglobin 30.3 pg (25.9-34.0); Mean Corpuscular Volume 86.7 fL (80.0-94.0); Mean Platelet Volume 8.5 fL (9.5-13.5); Monocytes Absolute Auto 0.5 10^3/uL (0.3-0.8); Neutrophils Absolute Auto 2.6 10^3/uL (1.4-6.5); Platelet Count 244 10^3/uL (150-450); Red Blood Count 4.29 10^6/uL (4.70-6.10); Red Cell Distribution Width 12.5 % (11.0-15.0); White Blood Count 4.5 10^3/uL (4.0-11.0)
[2025-03-29 13:19] LABS: Anion Gap 16.2; BUN Creatinine Ratio 14.5; Calcium 8.8 mg/dL (8.5-10.1); Carbon Dioxide 22.9 mmol/L (21.0-32.0); Chloride 106 mmol/L (98-107); Estimated GFR (African America >60 (>=60 mL/min/1.73m^2); Estimated GFR (Non-African Ame >60 (>=60 mL/min/1.73m^2); Glucose 143 mg/dL (74-106); Potassium 4.1 mmol/L (3.5-5.1); Sodium 141 mmol/L (136-145); Troponin I High Sensitivity 4.9 pg/mL (4.0-76.1)
== END 2025-03-29 14:09 | disposition home or self-care (01) ==
PROVIDERS: Emergency Provider Emergency Medicine
DX: R42 Dizziness and giddiness (principal); T50.995A Adverse effect of other drugs, medicaments and biological substances, initial encounter
CPT/HCPCS: 36415; 71045; 80048; 84484; 85025; 93005; 99284